=== PATIENT | female | born 2000 ===

== ENCOUNTER 2023-01-29 16:27 | Emergency (ER) | payer OTHER, SELFPAY ==
--- NOTE | ~2023-01-29 | XR_ITS ---
EXAMINATION: XR CHEST CLINICAL INFORMATION: Shortness of breath. Cough. COMPARISON: None available. TECHNIQUE: 2 views of the chest were obtained. FINDINGS: Cardiac silhouette is normal in size. Lungs are well aerated. There is no lobar consolidation. No pleural effusion or pneumothorax. No acute osseous abnormality. XR/XR chest 2V IMPRESSION: No acute pulmonary pathology.
[2023-01-29 16:29] VITALS: BP 106/66; PULSE 120; RESP 18; TEMP 37.4; O2SAT 100; BMI 20.1
--- NOTE | 2023-01-29 16:29 | ED_ITS ---
HPI - General Adult General Chief complaint: Upper Respiratory Symptoms Stated complaint: Chest pressure, SOB, chills, fever symptoms Time Seen by Provider: 01/29/23 18:55 Source: patient Mode of arrival: ambulatory Limitations: no limitations History of Present Illness HPI narrative: Patient is a 22 year old assigned female at with no reported medical history presenting to the emergency department today feeling generally unwell. Patient states that over the last 3 days she has had chills, congestion, headache, and a sore throat. Patient denies any dizziness, lightheadedness, abdominal pain, nausea, vomiting, fever, blurry vision, double vision, loss of vision, chest pain, difficulty breathing, shortness of breath, back pain, night sweats, pain with urination, increased urinary frequency, increased urinary urgency, blood in her urine or stool, syncope or a near syncopal episode, recent trauma or falls, bowel incontinence, bladder incontinence, bowel retention, bladder retention, or any other complaints at this time. Onset (ago): day(s) (3) Severity: mild Severity scale (1-10): 3 Relieving factors: none Exacerbating factors: none Associated symptoms: fever/chills and headaches Treatments prior to arrival: none Related Data Allergies Allergy/AdvReac Type Severity Reaction Status Date / Time No Known Allergies Allergy Verified 01/29/23 16:29 Review of Systems Constitutional: Constitutional: Reports no additional constitutional complaints, Reports chills, Denies fever(s), Reports headache(s) and Denies night sweats Eyes: Eyes: Reports no additional eye complaints, Denies blurry vision, Denies change in vision, Denies diplopia, Denies eye discharge, Denies loss of vision and Denies eye pain ENT: Denies dizziness, Reports headache(s), Reports nasal congestion and Reports sore throat Cardiovascular: Cardiovascular: Reports no additional cardiovascular complaints, Denies chest pain, Denies lightheadedness, Denies Loss of Consciousness and Denies dyspnea Respiratory: Respiratory: Reports no additional respiratory complaints and Denies dyspnea Gastrointestinal: Gastrointestinal: Reports no additional gastrointestinal complaints, Denies abdominal pain, Denies melena, Denies hematochezia, Denies change in bowel habits and Denies change in stool character Genitourinary: Genitourinary: Denies hematuria, Denies urinary frequency, Denies dysuria, Denies urinary incontinence, Denies urinary hesitancy and Denies urinary urgency Musculoskeletal: Musculoskeletal: Reports no additional musculoskeletal complaints, Denies numbness and Denies tingling Neurologic: Denies dizziness, Reports headache(s), Denies loss of vision, Denies numbness and Denies tingling Psychiatric: Psychiatric: Reports no additional psychiatric complaints Endocrine: Endocrine: Reports no additional endocrine complaints Hematologic/Lymphatic: Hematologic/Lymphatic: Reports no additional hematologic/lymphatic complaints Allergic/Immunologic: Allergic/Immunologic: Reports no additional allergic/immunologic complaints [facility] Past Medical History Attestation statement: The following information was validated with the patient. Source: old records reviewed and nursing notes reviewed Social History Social History Advance Directives: No Advance Directives Information Provided: No Physical Exam ED Vital Signs: Vital Signs - 24 hr 01/29/23 16:29 Temperature 99.4 F Pulse Rate 120 H Respiratory Rate 18 Blood Pressure 106/66 Pulse Oximetry 100 Oxygen Delivery Method Room Air BMI result Body Mass Index 20.1 Const General: cooperative, no acute distress, alert and awake Nutritional Appearance: well nourished Orientation/consciousness: patient oriented x3 Limitations: no limitations HENMT Head: Yes normal to inspection and Yes atraumatic Ears: hearing grossly normal bilaterally and external ears normal General nose exam: Normal external nose present, no nasal discharge noted and no epistaxis Face and sinus: Yes normal facial exam, No abrasion and No laceration Mouth: Normal oral and palatal mucosa present, no drooling and no muffled voice Eyes General: appearance normal, both eyes and all related structures Periorbital: periorbital findings normal Eyelids: Yes eyelids normal Conjunctivae: conjunctivae normal Pupils: Equal, round and reactive pupils present EOM: EOMs intact bilaterally Neck Neck: Yes normal visual inspection, Yes full ROM and Yes no lymphadenopathy Chest Chest palpation & inspection: normal inspection of the chest Resp Effort & Inspection: normal respiratory effort and able to speak in complete sentences GI Inspection: Yes normal to inspection Neuro General: patient oriented x3 and moves all extremities Cranial nerves: Yes Equal, round and reactive pupils present Cognition (Neuro): normal cognition Motor exam (neuro): 5/5 motor strength present throughout Sensory Exam: Normal double simultaneous stimulation for sensation Coordination: [id number] test normal Extrem General: Yes normal to inspection, Yes full ROM and Yes capillary refill normal Psych Appearance: grossly normal Mental Status: mental status grossly normal Affect: normal affect Attitude: cooperative Thought process: Normal thought process present Thought content: Normal thought content present Insight: Good insight present (Psych) Course Course Course Narrative: RME performed by Raya Mcguire PA-C. Patient is a 22 year old assigned female at presenting to the emergency department with feeling generally unwell for the last 3 days. Imaging and swabs ordered. Patient placed back in the waiting room pending room availability and results. Medical Decision Making Medical Decision Making [facility] Narrative: Patient is a 22 year old assigned female at with no reported medical history presenting to the emergency department today with chills, congestion, headache, and sore throat. Patient's physical exam was unremarkable. Patient's chest x-ray showed no acute process. Patient's EKG was unremarkable. Patient's COVID-19 test was positive. Patient's influenza, RSV, and strep swabs were negative. I explained my physical exam findings as well as all test results to the patient. I answered all questions asked by the patient. I stressed the importance of the patient taking her medication as prescribed. I stressed the importance of the patient following up with her primary care provider. I stressed the importance of the patient returning to the emergency department immediately if her symptoms were to worsen or if she were to develop any dizziness, shortness of breath, difficulty breathing, chest pain, blurry vision, loss of vision, nausea, vomiting, abdominal pain, fever, chills, back pain, or any other complaints. Patient verbalized agreement and understanding with this treatment plan and discharge. Differential Diagnosis Differential Diagnoses: The differential diagnosis associated with the presentation includes COVID-19 RSV Influenza Admission/Observation Consideration of admission/observation: Escalation of care including admission/observation considered Patient would have been admitted to the hospital had her work up had any findings where hospital admission was appropriate and her clinical presentation warranted hospital admission. Lab Data [facility] Lab Attestation statement: I reviewed the patient's lab results. My interpretation of these studies and their corresponding values is that they are grossly normal. Labs: Lab Results 01/29/23 Range/Units 17:05 Influenza Type A (PCR) NEGATIVE (Negative) Influenza Type B (PCR) NEGATIVE (Negative) RSV RNA Qual (PCR) NEGATIVE (Negative) SARS-CoV-2 RNA (RT-PCR) POSITIVE A (Negative) S. pyogenes GrpA PONCHO Negative (Negative) Independent Interpretation I performed an independent interpretation of an: EKG and Plain X-Ray Interpretation: My interpretation is in agreement with the radiologist's impression of this imaging study. EXAMINATION: XR CHEST CLINICAL INFORMATION: Shortness of breath. Cough. COMPARISON: None available. TECHNIQUE: 2 views of the chest were obtained. FINDINGS: Cardiac silhouette is normal in size. Lungs are well aerated. There is no lobar consolidation. No pleural effusion or pneumothorax. No acute osseous abnormality. XR/XR chest 2V IMPRESSION: No acute pulmonary pathology. Dictated By: Nabor Leon MD Signed By: Electronically signed by Nabor Leon MD 01/29/23 1702 Vent. Rate: 117 BPM Atrial Rate: 117 BPM P-R Int: 134 ms QRS Dur: 084 ms QT Int: 294 ms P-R-T Axes: 072 071 051 degrees QTc Int: 410 ms Sinus tachycardia Otherwise normal ECG No previous ECGs available DD/ [id number] Radiology Impression Discussion of test interpretation with radiology: I have reviewed the radiologist's reading. Discharge Plan Discharge Clinical Impression: COVID-19 Patient Disposition: Home, Self-Care Instructions: COVID-19 (Coronavirus Disease 2019) (ED) Additional Instructions: Follow up with your primary care provider. Return to the emergency department immediately if your symptoms worsen or if you develop any dizziness, shortness of breath, difficulty breathing, chest pain, blurry vision, loss of vision, nausea, vomiting, abdominal pain, fever, chills, back pain, or any other co mplaints. [place] [facility] [facility] [place]] (Call to establish and follow up with a primary care provider. If you already have a primary care provider, please f ollow up with them.) [facility]Provider Group] (Call to establish and follow up with a primary care provider. If you already have a primary care provider, please follow up with them.) [facility]Provider Group] (Call to establish and follow up with a primary care provider. If you already have a primary care provider, please follow up with them.) Stand Alone Forms: Work/School Release Print Language: Japanese
--- NOTE | 2023-01-29 16:30 | ECG_ITS ---
Test Reason : chest pain Blood Pressure : / mmHG Vent. Rate : 117 BPM Atrial Rate : 117 BPM P-R Int : 134 ms QRS Dur : 084 ms QT Int : 294 ms P-R-T Axes : 072 071 051 degrees QTc Int : 410 ms Sinus tachycardia Intra-ventricular conduction delay Otherwise normal ECG No previous ECGs available Referred By: Raya Mcguire Electronically Signed By:KELLI TEAGUE MD
[2023-01-29 17:29] LABS: IDNOW Serial# 58CA691E; Strep A Nucleic Acid Negative (Negative)
[2023-01-29 17:51] LABS: Influenza A PCR NEGATIVE (Negative); Influenza B PCR NEGATIVE (Negative); Resp Syncy Virus RNA Qual PCR NEGATIVE (Negative); SARS COV2 PCR INHOUSE POSITIVE (Negative)
== END 2023-01-29 19:48 | disposition home or self-care (01) ==
PROVIDERS: Physician Assistant Medical; Emergency Provider Emergency Medicine Emergency Medical Services; PCP Internal Medicine
DX: U07.1 COVID-19 (principal); J02.9 Acute pharyngitis, unspecified; R51.9 Headache, unspecified; R06.02 Shortness of breath; R05.9 Cough, unspecified; R00.0 Tachycardia, unspecified
CPT/HCPCS: 0241U; 71046; 87651; 93005; 99283

== ENCOUNTER 2023-12-02 19:09 | Emergency (ER) | payer OTHER, SELFPAY ==
--- NOTE | ~2023-12-02 | CT_ITS ---
EXAMINATION: CT ABDOMEN AND PELVIS WITHOUT CONTRAST CLINICAL INFORMATION: Suprapubic discomfort COMPARISON: None available. TECHNIQUE: Multidetector volumetric imaging was performed from the superior aspect of the liver through the pubic symphysis. Sagittal and coronal reformatted images were obtained on the technologist's workstation. This CT examination was performed using dose optimization techniques as appropriate, variously including the following: *Automated exposure control *Adjustment of mA and/or kV according to patient size (this includes techniques or standardized protocols for targeted exams where dose is matched to indication/reason for exam; i.e. extremities or head) *Use of iterative reconstruction technique DLP: 264 mGy-cm FINDINGS: The study is limited by lack of oral, IV contrast as well as retroperitoneal fat. LUNG BASES: The visualized lung bases are unremarkable. LIVER, GALLBLADDER, AND BILIARY TREE: The liver is normal in size, shape, and attenuation. No focal hepatic lesion or biliary ductal dilatation is present. The gallbladder is unremarkable with no evidence of radiopaque gallstones, gallbladder wall thickening, or obvious pericholecystic inflammatory changes. PANCREAS: Unremarkable. SPLEEN: Unremarkable. ADRENAL GLANDS: Unremarkable. KIDNEYS AND URETERS: The kidneys are normal in size, shape, and attenuation. No hydronephrosis, hydroureter, or calculi seen. No perinephric stranding. BLADDER: Bladder is essentially completely empty with a symmetrically thickened wall GASTROINTESTINAL TRACT: The small and large bowel are unremarkable. The appendix is unremarkable. ABDOMINAL WALL: No significant hernia is appreciated. LYMPH NODES: Normal. VASCULAR: Unremarkable. PELVIC VISCERA: The uterus and adnexa are unremarkable. No significant free fluid is seen. OSSEOUS STRUCTURES: Unremarkable. CT/CT abdomen pelvis wo IV con IMPRESSION: A cause for the patient's pelvic discomfort has not been found. Pelvic ultrasound may be useful for further evaluation. Fleischner guidelines were followed. Electronically signed by: Cyril Santos MD 12/02/2023 11:33 PM EDT
--- NOTE | 2023-12-02 19:16 | ED_ITS ---
HPI - General Adult General Chief complaint: Urogenital-Female Stated complaint: possible UTI, wants bladder scan Time Seen by Provider: 12/02/23 21:48 Source: patient Mode of arrival: ambulatory Limitations: no limitations History of Present Illness ED Provider: Kyree DUNNE HPI narrative: This is a 22 yo f hx of anxiety, depression, dysmenorrhea, hx of chlamydia infection 209 presenting w/ lower abd discomfort x 2 months primarily located over the suprapubic region she also reports urinary frequency, urgency, and diffuse lower back pain. Patient [place] vaginal sw[place] and [place] [facility] [place] states overall her workup was negative. At one point she had vaginal discharge she thought was yeast but per patient [facility] [place] present. LMP 10/23/2023. Home teste today negative. Denies concerns for STDs but does have a new sexual partner. Related Data Previous Rx's ?Medication ?Instructions ?Recorded phenazopyridine 100 mg tablet 200 mg (2 x 100 mg) PO TID 2 days 12/02/23 (Pyridium) #6 tabs Allergies Allergy/AdvReac Type Severity Reaction Status Date / Time No Known Allergies Allergy Verified 12/02/23 19:20 Review of Systems 2 Review of Systems: Yes all other systems are reviewed and are negative [facility] Past Medical History Attestation statement: The following information was validated with the patient. Source: old records reviewed and nursing notes reviewed Social History Social History Advance Directives: No Advance Directives Information Provided: No Do you have a plan to hurt others: No Plan Physical Exam ED Vital Signs: Vital Signs - 24 hr 12/02/23 19:18 Temperature 97.6 F Pulse Rate 89 Respiratory Rate 18 Blood Pressure 113/78 Pulse Oximetry 100 Oxygen Delivery Method Room Air BMI result Body Mass Index 18.7 vss Appearance: Alert.? Oriented X3.? No acute distress.? Head: Normocephalic, atraumatic, no step-offs or deformities Eyes: Pupils equal, round and reactive to light.? CVS: Normal heart rate and rhythm.? Pulses normal.? Respiratory: No respiratory distress.? Breath sounds normal.? Abdomen: Soft and nontender.? Skin: Skin warm and dry.? Normal skin color.? Normal skin turgor.? Extremities: No lower extremity edema.? No calf ttp. 5/5 strength to bilateral upper and lower extremities Back: No midline tenderness, no C-spine tenderness, full range of motion, no CVA tenderness bilaterally Neuro: Oriented X 3.? No motor deficit.? No sensory deficit. CN 2-12 intact Course Course Course Narrative: This is an RME performed by Shahram Vyas, SERICULTURE TEACHER: Additional HPI, ROS, PE not included below will be deferred to primary provider. Patient is a 22-year-old female who presents emergency department for evaluation she Reports for a couple of months she has been experiencing genitourinary symptoms including Urinary frequency and urgency with suprapubic pain, has pain diffusely across the lower back. Reports that she was evaluated at [facility] 2 weeks ago she had vaginal swabs and urine testing done at that time that she did not have infection at that time expresses some concern for yeast like discharge that was reportedly not a yeast infection. Uncertain date of last menstrual period, took home test today which was negative. No new sexual partners within the past month, denies concern for sexually transmitted infections. Plan: Urinalysis, hCG, CT NG, BV panel, labs Reevaluation(s) Reevaluation #1: CBC unremarkable. Chemistry no acute findings needing intervention. Beta hCG negative. UA negative. No Trichomonas or yeast seen. CT abdomen and pelvis with cause of patient's pelvic discomfort not identified. History and physical exam concerning for cystitis rather than UTI. Will treat with Pyridium. Educated patient on diagnosis and treatment plan, answered all question, patient verbalizes understanding. At this time patient will be discharged home, advised to return with new or worsening symptoms. Educated on worrisome signs and symptoms and when to return. At this time I feel comfortable discharge home. Time: 23:50 Medical Decision Making Medical Decision Making [facility] [place] Narrative: 2153 22 year old female presents w/ suprapubic discomfort X 2 months Per patient was seen at [facility] with negative workup. PE mild suprapubic discomfort Hx and pe concerning for UTI vs Cystitis. Unlikely acute abdomen, torsion, ectopic,pylo, kidney stones. [place] sánchez NG/CT, trich, PID Plan- labs, imaging, urine Differential Diagnosis Differential Diagnoses: The differential diagnosis associated with the presentation includes Hx and pe concerning for UTI vs Cystitis. Unlikely acute abdomen, torsion, ectopic,pylo, kidney stones. [place] sánchez NG/CT, trich, PID Admission/Observation Consideration of admission/observation: Escalation of care including admission/observation considered unlikely Lab Data [facility] Lab Attestation statement: I reviewed the patient's lab results. 12/02/23 19:38 12/02/23 19:38 Labs: Lab Results 12/02/23 12/02/23 Range/Units 19:38 20:34 WBC 7.8 (4.8-10.8) X10*3/uL RBC 4.11 L (4.20-5.50) X10*6/uL Hgb 12.4 (12.0-16.0) g/dl Hct 36.4 L (37.0-47.0) % MCV 88.6 (80.0-98.0) fL MCH 30.2 (27.0-33.0) pg MCHC 34.1 (31.0-35.0) g/dl RDW 12.7 (11.0-16.0) % Plt Count 196 (160-400) X10*3/uL MPV 12.2 (9.4-12.3) fL Immature Gran % (Auto) 0.1 (0.0-0.4) % Neut % (Auto) 64.6 (45-73) % Lymph % (Auto) 27.1 (20-40) % Candler % (Auto) 6.9 (2-11) % Eos % (Auto) 0.8 (0-4) % Baso % (Auto) 0.5 (0-2) % Lymph # (Auto) 2.1 (1.2-4.9) X10*3/uL Candler # (Auto) 0.5 (0.1-1.2) X10*3/uL Eos # (Auto) 0.1 (0.0-0.4) X10*3/uL Baso # (Auto) 0.0 (0.0-0.2) X10*3/uL Abs Immat Gran (auto) 0.01 (0.00-0.03) X10*3/uL Absolute Neuts (auto) 5.0 (2.0-8.3) x10*3/uL Absolute Nucleated RBC 0.000 (0.0-0.012) X10*3/uL Nucleated RBC % (auto) 0.0 (0.0-0.2) /100WBC Sodium 138 (135-145) mmol/L Potassium 4.1 (3.3-5.1) mmol/L Chloride 110 H (96-108) mmol/L Carbon Dioxide 22 (22-29) mmol/L Anion Gap 10 L (12-20) BUN 14 (9-16) mg/dL Creatinine 0.68 (0.5-1.4) mg/dL Estim Creat Clear Calc 94.8 Estimated GFR > 60 Random Glucose 99 (60-115) mg/dL Calcium 9.6 (8.4-10.2) mg/dL Total Bilirubin 0.4 (0.0-1.0) mg/dL AST 16 (5-31) U/L ALT 8 (0-31) U/L Alkaline Phosphatase 59 (39-117) U/L Total Protein 7.4 (6.5-8.0) g/dL Albumin 4.6 (3.5-5.0) g/dL Beta HCG, Quant < 2 mIU/mL Urine Color Yellow Urine Appearance Clear Urine pH 6.5 (5.0-9.0) Ur Specific Woodrow 1.010 (1.005-1.025) Urine Protein Negative (Neg-Trace) mg/dL Urine Glucose (UA) Negative (Negative) mg/dL Urine Ketones Negative (Negative) mg/dL Urine Blood Negative (Negative) Urine Nitrite Negative (Negative) Ur Leukocyte Esterase Negative (Negative) Independent Interpretation I performed an independent interpretation of an: CT Scan Radiology Impression Discussion of test interpretation with radiology: I have reviewed the radiologist's reading. Discharge Plan Discharge Clinical Impression: Suprapubic fullness, Cystitis Patient Disposition: Home, Self-Care Instructions: Urinary Tract Infection in Women (ED), Acute Abdominal Pain (ED) Additional Instructions: Take your medications as prescribed. If you were prescribed antibiotics today, it is important that you take your medication to their entirety, do not skip any doses, do not finish them early. Follow-up with your primary care provider this week. Return to the emergency department with new or worsening symptoms. Such as fevers, chills, chest pain, shortness of breath, nausea, vomiting, dizziness, headache, vision changes, lethargy In case of emergency call 911 CT/CT abdomen pelvis wo IV con IMPRESSION: A cause for the patient's pelvic discomfort has not been found. Pelvic ultrasound may be useful for further evaluation. Fleischner guidelines were followed. Prescriptions: New phenazopyridine [Pyridium] 100 mg tablet 200 mg PO TID 2 Days Qty: 6 0RF Referrals: Brisa Carrion, PT [Primary Care Provider] - 2 days Stand Alone Forms: Work/School Release Print Language: Chilean
[2023-12-02 19:18] VITALS: BP 113/78; PULSE 89; RESP 18; TEMP 36.4; O2SAT 100; BMI 18.7
[2023-12-02 19:42] LABS: MANUAL DIFF FLAG NO
[2023-12-02 19:47] LABS: Basophils Percent Auto 0.5 % (0-2); Eosinophils Absolute Auto 0.1 X10*3/uL (0.0-0.4); Eosinophils Percent Auto 0.8 % (0-4); Hematocrit 36.4 % (37.0-47.0); Hemoglobin 12.4 g/dl (12.0-16.0); Imm Gran Abs Auto 0.01 X10*3/uL (0.00-0.03); Imm Gran Pct Auto 0.1 % (0.0-0.4); Lymphocytes Absolute Auto 2.1 X10*3/uL (1.2-4.9); Lymphocytes Percent Auto 27.1 % (20-40); Mean Corpuscular HGB Conc 34.1 g/dl (31.0-35.0); Mean Corpuscular Hemoglobin 30.2 pg (27.0-33.0); Mean Corpuscular Volume 88.6 fL (80.0-98.0); Mean Platelet Volume 12.2 fL (9.4-12.3); Monocytes Absolute Auto 0.5 X10*3/uL (0.1-1.2); Monocytes Percent Auto 6.9 % (2-11); Neutrophils Percent Auto 64.6 % (45-73); Platelet Count 196 X10*3/uL (160-400); Red Blood Count 4.11 X10*6/uL (4.20-5.50); Red Cell Distribution Width 12.7 % (11.0-16.0); White Blood Count 7.8 X10*3/uL (4.8-10.8)
[2023-12-02 19:58] LABS: Alanine Aminotransferase 8 U/L (0-31); Albumin Level 4.6 g/dL (3.5-5.0); Alkaline Phosphatase 59 U/L (39-117); Anion Gap 10 (12-20); Aspartate Amino Transferase 16 U/L (5-31); Bilirubin Total 0.4 mg/dL (0.0-1.0); Blood Urea Nitrogen 14 mg/dL (9-16); Calcium 9.6 mg/dL (8.4-10.2); Carbon Dioxide 22 mmol/L (22-29); Chloride 110 mmol/L (96-108); Creatinine Clr Calc Pharmacy 94.8; Estimated Glomerular Filt Rate > 60; Glucose Random 99 mg/dL (60-115); Potassium 4.1 mmol/L (3.3-5.1); Sodium 138 mmol/L (135-145); Total Protein 7.4 g/dL (6.5-8.0)
[2023-12-02 20:54] LABS: Appearance Urine Clear; Color Urine Yellow; Glucose Urine UA Negative (Negative); Leukocyte Esterase Urine Negative (Negative); Nitrite Urine Negative (Negative); PH 6.5 (5.0-9.0); Urine Blood Negative (Negative); Urine Ketones Negative (Negative); Urine Protein Negative (Neg-Trace)
[2023-12-02 22:21] LABS: HCG Quantitative < 2 mIU/mL
[2023-12-03 00:21] VITALS: BP 110/67; PULSE 72; RESP 18; TEMP 37; O2SAT 98
[2023-12-03 00:22] VITALS: BP 110/67; PULSE 72; RESP 18; TEMP 37; O2SAT 98
[2023-12-03 01:19] LABS: CT PCR NOT DETECTED (Not Detect.); NG PCR NOT DETECTED (Not Detect.)
[2023-12-03 10:07] LABS: Bacterial Vaginosis PCR NEGATIVE (Negative); Candida Group PCR NOT DETECTED (Not Detect); Candida glab krusei PCR NOT DETECTED (Not Detect); Trichomonas vaginalis PCR NOT DETECTED (Not Detect)
== END 2023-12-02 23:59 | disposition home or self-care (01) ==
PROVIDERS: Nurse Practitioner Family; Physician Assistant; Emergency Provider Emergency Medicine Emergency Medical Services
DX: R10.30 Lower abdominal pain, unspecified (principal); N30.80 Other cystitis without hematuria; R35.0 Frequency of micturition; M54.50 Low back pain, unspecified; Z20.2 Contact with and (suspected) exposure to infections with a predominantly sexual mode of transmission; Z79.899 Other long term (current) drug therapy
CPT/HCPCS: 0352U; 36415; 74176; 80053; 81003; 84702; 85025; 87491; 87591; 99284

== ENCOUNTER 2024-04-14 12:43 | Emergency (ER) | payer OTHER, SELFPAY ==
--- OUTSIDE RECORDS SUMMARY | 2024-04-14 18:15 | XMS_ITS | Clinical Summary ---
Author Organization [facility] ity Address [id number] [place] [id number] Care Team Providers Care Four H Agent Name Role Phone Unavailable Primary Care Provider Unavailabl e Surgical History Surgery Date Site/Laterality Comments OTHER SURGICAL HISTORY PROCEDURE: DENIES PREVIOUS SURGERY Medical History Medical History Date Comments Lactose intolerance 04/30 DX:Lactose i ntolerance; COMMENT: lactaid pills with milk; ok with cheese and yogurt Strep pharyngitis DX:Strep phary ngitis; COMMENT: 05/20, 01/24, 05/29 Family History Medical History Relation Name Comments Other: anger Father Seizures Father MGM Depression Mother Relation Name Status Comments Father Mother Social History Tobacco Use Types Packs/Day Years Used Date Smoking Tobacco: Never Smokeless Tobacco: Never Alcohol Use Standard Drinks/Week Comments Not Asked 0 (1 standard drink = 0.6 oz pur e alcohol) Sex and Gender Information Value Date Recorded Sex Assigned at Not on file Gender Identity Not on file Sexual Orientation Not on file Obstetrics History Plan of Treatment Health Maintenance Due Date Last Done Comments Gonorrhea/Chlamydia Screening 2000 Cervical Cancer Screening: Pap Smear 2021 DTaP,Tdap,and Td Vaccines (7 - Td or Tdap) 07/31/2022 07/31/2012, 11/28/2006, 05/09/2002, Additional history exists Depression Screening 04/17/2023 HIV Screening 04/17/2023 Hepatitis C Screening 04/17/2023 Social Influencers of Health Screening 04/17/2023 COVID-19 Vaccine ( season) 2023 Influenza Vaccine (#1) 2023 5, 01/03/2014, 03/28/2012, Additional history exists Hepatitis B Vaccines Completed 08/26/2001, 01/29/2001, 2000 HIB Vaccines Completed 05/09/2002, 05/18, 04/12/2001, Additional history exists Pneumococcal Vaccine: Pediatrics (0 to 5 Years) and At-Risk Patients (6 to 64 Years) Completed 08/29/2002, 06/06/2001, 04/12/2001, Additional history exists IPV Vaccines Completed 11/28/2006, 08/17, 05/09/2002, Additional history exists MMR Vaccines Completed 11/28/2006, 05/30/2002 Varicella Vaccines Completed 11/28/2006, 05/30/2002 Meningococcal ACWY Vaccine Aged Out 07/31/2012 N o longer eligible based on patient's age to complete this topic HPV Vaccines Completed 08/27/2015, 09/16/2013 Hepatitis A Vaccines Aged Out No long er eligible based on patient's age to complete this topic RSV Immunization Patients Under 20 months Aged Out No longer eligible based on patient's age to complete this topic
== END 2024-04-14 13:51 | disposition left against medical advice (07) ==
LOC: HO.ED 13:30
PROVIDERS: Emergency Provider Emergency Medicine
DX: R50.9 Fever, unspecified (principal); R11.2 Nausea with vomiting, unspecified; R19.7 Diarrhea, unspecified; Z53.21 Procedure and treatment not carried out due to patient leaving prior to being seen by health care provider

== ENCOUNTER 2024-07-08 11:09 | Emergency (ER) | payer OTHER, SELFPAY ==
--- NOTE | ~2024-07-08 | XR_ITS ---
EXAMINATION: XR THORACIC SPINE CLINICAL INFORMATION: back pain. degnerative disc disease COMPARISON: None available. TECHNIQUE: 3 views of the thoracic spine were obtained. FINDINGS: No acute cortical disruption or malalignment. No lytic or blastic lesions. XR/XR thoracic spine 3V IMPRESSION: No acute fracture or listhesis. Normal x-ray. Electronically signed by: Damian Godinez MD 07/08/2024 11:39 AM EDT
--- NOTE | ~2024-07-08 | XR_ITS ---
EXAMINATION: XR CERVICAL SPINE CLINICAL INFORMATION: neck pain. arthritits COMPARISON: None available. TECHNIQUE: 3 views of the cervical spine were obtained. FINDINGS: Craniocervical junction is intact. No acute cortical disruption. 1 mm retrolisthesis at C3-4. No lytic or blastic lesions. Upper airway is patent. XR/XR cervical spine 3V IMPRESSION: Grade 1 retrolisthesis C3-4. Electronically signed by: Damian Godinez MD 07/08/2024 11:39 AM EDT
[2024-07-08 11:18] VITALS: BP 115/73; PULSE 81; RESP 18; TEMP 36.6; O2SAT 100; BMI 17.6
--- NOTE | 2024-07-08 11:23 | ED.GENADULT ---
HPI - General Adult General Chief complaint: Neck Pain/Injury Stated complaint: Nerve pain in neck down to arms/fingers Time Seen by Provider: 07/08/24 11:46 Source: patient Mode of arrival: ambulatory Limitations: no limitations History of Present Illness ED Provider: Jose Andrade HPI narrative: 23-year-old female presents to ED for neck and upper back pain for the past couple of weeks radiating down both arms without any trauma. Patient denies any slurred speech, facial droop, loss of vision, paralysis of extremities. Patient denies any headache, dizziness, nausea, vomiting, neck stiffness, photophobia, rash, fever, or chills. Related Data Previous Rx's ?Medication ?Instructions ?Recorded phenazopyridine 100 mg tablet 200 mg (2 x 100 mg) PO TID 2 days 12/02/23 (Pyridium) #6 tabs Allergies Allergy/AdvReac Type Severity Reaction Status Date / Time No Known Allergies Allergy Verified 07/08/24 11:20 Review of Systems Review of Systems: neck and upper back pain Yes all other systems are reviewed and are negative [facility] Social History Social History Advance Directives: Yes Advance Directives Information Provided: Yes Advance Directives on File: No Physical Exam ED Vital Signs: Vital Signs - 24 hr 07/08/24 11:18 07/08/24 13:08 Temperature 97.8 F 97.8 F Pulse Rate 81 81 Respiratory Rate 18 18 Blood Pressure 115/73 115/73 Pulse Oximetry 100 100 Oxygen Delivery Method Room Air Room Air BMI result Body Mass Index 17.6 Const General: cooperative, healthy appearing, comfortable, no acute distress, well developed, alert, awake and Physically active Orientation/consciousness: patient oriented x3 HENMT Head: Yes normal to inspection, Yes No palpable skull fracture present, Yes normocephalic and Yes atraumatic Ears: hearing grossly normal bilaterally, external ears normal, TM's normal bilaterally, TM normal on the right, TM normal on the left, EAC's normal, mastoids normal and no periauricular adenopathy Eyes General: appearance normal, both eyes and all related structures Neck Neck: Yes normal visual inspection, Yes full ROM, Yes no lymphadenopathy, Yes no meningeal signs, Yes trachea midline, Yes supple, No anterior neck swelling and Yes tender (mild posterior cervical tenderness.) Chest Chest palpation & inspection: normal inspection of the chest and normal palpation of entire chest wall Resp Effort & Inspection: normal respiratory effort and able to speak in complete sentences Cardio Jugular venous distension: no JVD Heart sounds: S1 normal heart sound present and S2 normal heart sound present GI Inspection: Yes normal to inspection Palpation (GI): Soft to palpation, nontender, no guarding and not rigid General: Yes no CVA tenderness Back/Spine/Pelvis Back: no CVA tenderness and back tenderness (thoracic) Skin General skin exam: no rashes or lesions noted, elasticity normal and turgor normal Neuro General: patient oriented x3, gait normal, tone normal, moves all extremities, Normal light touch and pain sensation, no meningeal signs, no focal motor deficits, CN's II-XI intact bilaterally and normal sensation to monofilament Extrem General: Yes normal to inspection, Yes full ROM and Yes capillary refill normal Psych Appearance: grossly normal, well kempt and not disheveled Course Course Course Narrative: RME: 22 year female presents to ED upper back mild neck pain radiating down both shoulders without any trauma. Patient states back pain worse on movement. Patient denies any IV drug use, paralysis of extremities, or history of any immunocompromise diseases. Patient denies any slurred speech, facial droop, paralysis of extremities, loss vision. Patient is sent for x-ray of neck and back. Medical Decision Making Medical Decision Making MDM Narrative: 23 yold female presents to the ED for neck and upper back pain radiating down both arms for couple of weeks without. patient denies any upper extremity or lower extremity weakness. patient denies any slured speech, headache, dizziness, nuasea, vomtiting, fever, chills, rash, or, photphobia. Thoraric xray is normal. Cervical xray Grade 1 retrolisthesis C3-4. NIH Score 0. Not suspecting carotid dissection, stroke, vertebral dissection, brain bleed, osteomyelitis, cauda equinus syndrome, epidural abscess, cervical spine fracture/subluxation, UTI, pyelonephritis, or any other concerning symptoms. Differential Diagnosis Differential Diagnoses: The differential diagnosis associated with the presentation includes (Arthritis, fracture,) Admission/Observation Consideration of admission/observation: Escalation of care including admission/observation considered Independent Interpretation I performed an independent interpretation of an: Plain X-Ray Radiology Impression Discussion of test interpretation with radiology: I have reviewed the radiologist's reading. Independent Historian Clinical information obtained from an independent historian. History obtained from or confirmed by: Other (patient) Prescription Management I considered prescription management with: Pain Medication Discharge Plan Discharge Clinical Impression: Retrolisthesis of vertebrae Patient Disposition: Home, Self-Care Instructions: Spondylolisthesis (ED) Additional Instructions: Recommend follow-up with your primary care provider. You may need referral to physical therapy and if no improvement you may need MRI. Return to the ED immediately for any weakness paralysis of upper/lower extremities, severe neck pain, fever, chills, neck stiffness, light bothering eyes, headache, dizziness, nausea, vomiting, rash, slurred speech, facial droop, paralysis of extremities, loss of vision, or any other concerning symptoms. Continue taking muscle relaxer and Motrin you were prescribed by primary care provider. EXAMINATION: XR CERVICAL SPINE CLINICAL INFORMATION: neck pain. arthritits COMPARISON: None available. TECHNIQUE: 3 views of the cervical spine were obtained. FINDINGS: Craniocervical junction is intact. No acute cortical disruption. 1 mm retrolisthesis at C3-4. No lytic or blastic lesions. Upper airway is patent. XR/XR cervical spine 3V IMPRESSION: Grade 1 retrolisthesis C3-4. Electronically signed by: Damian Godinez MD 07/08/2024 11:39 AM EDT RP EXAMINATION: XR THORACIC SPINE CLINICAL INFORMATION: back pain. degnerative disc disease COMPARISON: None available. TECHNIQUE: 3 views of the thoracic spine were obtained. FINDINGS: No acute cortical disruption or malalignment. No lytic or blastic lesions. XR/XR thoracic spine 3V IMPRESSION: No acute fracture or listhesis. Normal x-ray. Electronically signed by: Damian Godinez MD 07/08/2024 11:39 AM EDT Prescriptions: No Action phenazopyridine [Pyridium] 100 mg tablet 200 mg PO TID 2 Days Qty: 6 0RF Stand Alone Forms: Work/School Release Interventions: ED Discharge Assessment Last Done: 07/08/24 13:08 Discharge Date/Time: 07/08/24 13:08 Print Language: Cameroonian
[2024-07-08 13:08] VITALS: BP 115/73; PULSE 81; RESP 18; TEMP 36.6; O2SAT 100
--- OUTSIDE RECORDS SUMMARY | 2024-07-08 15:24 | XMS_ITS | Clinical Summary ---
Author Organization [facility] Address [id number] [place] [id number] Care Team Providers Care Commercial Baker Helper Name Role Phone Unavailable Primary Care Provider [...] drink = 0.6 oz pur e alcohol) Comments Unknown Sex and Gender Information Value Date Recorded Sex Assigned at Not on file Legal Sex Female 3:10 PM EST Gender Identity Not on file Sexual Orientation Not on file Obstetrics History Plan of Treatment Health Maintenance Due Date Last Done Comments Gonorrhea/Chlamydia Screening 2000 Meningococcal B Vaccine (1 of 2 - Standard) 2016 Cervical Cancer Screening: Pap Smear 2021 DTaP,Tdap,and Td Vaccines (7 - Td or Tdap) 07/31/2022 07/31/2012, 11/28/2006, 05/09/2002, Additional history exists Depression Screening 04/17/2023 HIV Screening 04/17/2023 Hepatitis C Screening 04/17/2023 Social Influencers of Health Screening 04/17/2023 COVID-19 Vaccine ( season) 2023 Influenza Vaccine (Season Ended) 2024 11/30/2014, 01/03/2014, 03/28/2012, Additional history exists Hepatitis B [...]
--- OUTSIDE RECORDS SUMMARY | 2024-07-08 15:24 | XMS_ITS | Continuity of Care Document ---
Author Organization [facility] Address [address] [place] [address]- Care Team Providers Care Human Capital Manager Name Role Phone Trice Carrion MD Primary Care Physician Encounter [facility] Date(s): 06/06/24 - 07/06/24 [facility] [address] [place] [address]- Attending Physician: AdmMikael crespo Admitting Physician: Admtr, Ar8 Referring Physician: Admtr, Ar8 Encounter Type: Triage Allergies, Adverse Reactions, Alerts No Known Allergies Immunizations Given and Recorded Vaccine Date Status Refusal Reason influenza virus vaccine, inactivated 1 04/16/23 Gi jessi influenza virus vaccine, inactivated 01/25/18 Give n influenza virus vaccine, inactivated 2 01/26/17 Gi jessi influenza virus vaccine, inactivated 11/30/14 Give n influenza virus vaccine, inactivated 01/03/14 Derrick rded influenza virus vaccine, inactivated 03/28/12 Derrick rded influenza virus vaccine, inactivated 12/12/10 Derrick rded influenza virus vaccine, inactivated 01/18/09 Derrick rded [id number] bivalent booster vax 3 02/27/23 Recorded SARS-CoV-2(COVID-19)mRNA-LNP vac([id number]) 02/27/23 Recorded tetanus/diphtheria/pertussis, acel(Tdap) 12/17/20 Recorded tetanus/diphtheria/pertussis, acel(Tdap) 07/31/12 Given Human Papillomavirus Vaccine 01/26/17 Given Human Papillomavirus Vaccine 08/27/15 Recorded Human Papillomavirus Vaccine 7/1/14 Given Meningococcal Conjugate Vaccine 01/26/17 Given Meningococcal Conjugate Vaccine 07/31/12 Given Measles/Mumps/Rubella Virus Vaccine 05/30/12 Given Measles/Mumps/Rubella Virus Vaccine 11/28/06 Given Measles/Mumps/Rubella Virus Vaccine 05/30/02 Recor ded Poliovirus Vaccine, Inactivated 11/28/06 Given Poliovirus Vaccine, Inactivated 08/29/02 Given Poliovirus Vaccine, Inactivated 08/26/01 Given Poliovirus Vaccine, Inactivated 06/06/01 Given Varicella Virus Vaccine 11/28/06 Given Varicella Virus Vaccine 05/30/02 Given diphtheria/tetanus/pertussis, acel(DTaP) 11/28/06 Given diphtheria/tetanus/pertussis, acel(DTaP) 05/09/02 Given diphtheria/tetanus/pertussis, acel(DTaP) 06/06/01 Given diphtheria/tetanus/pertussis, acel(DTaP) 04/12/01 Given diphtheria/tetanus/pertussis, acel(DTaP) 02/26/01 Given pneumococcal 7-valent vaccine 08/29/02 Given pneumococcal 7-valent vaccine 06/06/01 Given pneumococcal 7-valent vaccine 04/12/01 Given pneumococcal 7-valent vaccine 02/26/01 Given Haemophilus B conjugate (HbOC) vaccine 05/09/02 Gi jessi Haemophilus B conjugate (HbOC) vaccine 06/06/01 Gi jessi Haemophilus B conjugate (HbOC) vaccine 04/12/01 Gi jessi Haemophilus B conjugate (HbOC) vaccine 02/26/01 Gi jessi hepatitis B pediatric vaccine 08/26/01 Given hepatitis B pediatric vaccine 01/29/01 Given hepatitis B pediatric vaccine 00 Given 1Result Comment: [facility] [id number] 2Result Comment: [01/26/2017] [id number] 3Result Comment: Done at [facility] on [address] Medications fluconazole 150 mg oral tablet 1 tablet = 150 mg, By Mouth, Once, # 1 tablet, 2 Refills, Soft Stop, 03/25/24 2:57:00 AM EST, Tablet,[facility]/pharmacy #[id number], Partial fill upon patient request if the prescription is for a schedule II opioid drug., 158, cm, 03/25/24 2:29:00 EST, Height, 44.5, kg, 03/25/24 2:29:00 EST, Dry Weight Start Date: 03/25/24 Status: Ordered Quantity: 1.0 Unit: tablet Repeat number: 3 fluticasone 50 mcg/inh nasal spray 1 sprays = 50 mcg, Nares, Both, 2 times a day, # 16 Gm, 1 Refills, Maintenance, 04/18/24 1:22:00 PM EST, [facility]/pharmacy #[id number], 1 sprays Nares, Both 2 times a day,x30 days, 160, cm, 04/18/24 12:49:00 EST, Height, 43, kg, 04/14/24 14:03:00 EST, Dry Weight Start Date: 04/18/24 Stop Date: 06/17/24 Status: Ordered Quantity: 16.0 Unit: g Repeat number: 2 hydrOXYzine hydrochloride 25 mg oral tablet 2 tablet, By Mouth, Daily at bedtime, PRN NEEDED FOR ANXIETY/SLEEP, # 60 tablet, 0 Refills, Maintenance, 04/01/24 2:06:00 PM EST, [facility] STORE [id number], 158, cm, 03/25/24 2:29:00 EST, Height, 44.5, kg, 03/25/24 2:29:00 EST, Dry Weight Start Date: 04/01/24 Status: Ordered Quantity: 60.0 Unit: tablet Repeat number: 04/07 oral tablet 0 Refills, Maintenance, 04/18/24 1:10:00 PM EST, Partial fill upon patient request if the prescription is for a schedule II opioid drug. Start Date: 04/18/24 Status: Ordered Repeat number: 1 naproxen 500 mg oral delayed release tablet 1 tablet = 500 mg, By Mouth, 2 times a day, PRN Pain , Mild, # 30 tablet, 0 Refills, Maintenance, 12/05/23 3:28:00 PM EDT, EC Tablet, [facility]/pharmacy #[id number], Partial fill upon patient request if the prescription is for a schedule II opioid drug., 158, cm, 12/05/23 14:38:00 EDT, Height, 46.7, kg, 12/05/23 14:38:00 EDT, Dry Weight Start Date: 12/05/23 Status: Ordered Quantity: 30.0 Unit: tablet Repeat number: 1 ondansetron 4 mg oral tablet, disintegrating 1 tablet = 4 mg, By Mouth, Every 8 hours, PRN as needed for nausea/vomiting, # 10 tablet, 0 Refills, Maintenance, 04/11/24 6:18:00 PM EST, DIS Tablet, [facility]/pharmacy #[id number], Partial fill upon patient request if the prescription is for a schedule II opioid drug., 159, cm, 04/11/24 13:08:00 EST, Height, 44.5, kg, 03/25/24 2:29:00 EST, Dry Weight Start Date: 04/11/24 Status: Ordered Quantity: 10.0 Unit: tablet Repeat number: 1 Problem List Condition Confirmation Course Effective Dates Status Health St atus Informant Dysmenorrhea Confirmed Active History of chlamydia infection Confirmed 09/2018 Active Depression, major, recurrent, moderate Confirmed Active Underweight Confirmed Active Social History Social History Type Response Smoking Status Never (less than 100 in lifetime) entered on: 09/15/20 Sex Sex Representation Female (finding) Patient Care team information Care Team Personnel Name: Sheyla SWARTZ, Trice Harper Position: [facility] Physician - Primary Care Member Role: PCP Address: [address] [place] [address] Adult & Pediatric [address] Telecom: Care Team Related Persons Name: SHERITA COBURN Name: MORIAH MICHAEL Name: MORIAH MICHAEL Name: ZEV MICHAEL Name: FOSTER SANTIAGO Insurance Providers Guarantor name: MORIAH MICHAEL Health Plan Information #: 1 Payer: [facility] Member Number: NA Policy Number: NA Group Number: NA
--- OUTSIDE RECORDS SUMMARY | 2024-07-08 15:24 | XMS_ITS | Data Portability ---
Author Organization [place] - [facility] Address [address] [place] [id number] Care Team Providers Care Cost Recorder Name Role Phone [facility] ADULT & PEDIATRIC MEDICINE Primary Care Provider Assessment Encounter Date Assessment Date Assessment LastModified by Organization Details LastModified Time 03/27/2022 03/27/2022 Brief Overview: 21 y/o female new to with unremarkable PMH. LMP 12. pt reports dysuria x 5 days, frequency and urgency. she also reports hematuria. she feels suprapubic pressure. no fever. she reports some nausea, no vomiting or diarrhea. denies flank pain. she also reports some vaginal discharge clear. denies itching, purulent drainage, odor. no known exposure to STI but still wants STI testing. pt has prior hx of UTIs. she denies abdominal pain, cp, sob, fever. pt denies any skin rash or genital lesions. Vital Signs: 126/80, HR 85, RR 18, T 97.5, O2 98% Exam: pleasant 21 y/o female well appearing, alert, NAD. eyes: no injection, icterus or discharge. mouth: moist mucous membranes no erythema, uvula is midline. no cervical lymphadenopathy. lungs: CTAB. heart: RRR no murmur rubs or gallops. abdomen: soft, normal bowel sounds, non tender. + suprapubic tenderness. no CVA tenderness. skin: warm and dry no rashes or lesions.strength is normal and equal bilaterally. gait and stance is normal. DDx considered, with rationale: Pyelonephritis: considered but she is afebrile, without nausea, vomiting and no CVA tenderness on exam. Ectopic : considered but HCG was negative. STI: considered BV panel nuswab+ pending. Appendicitis: considered but abdomen is non tender, she is afebrile. Sepsis: considered but vitals stable and she appears well. Results/work up: HCG was negative. UA suggestive of UTI leuks and blood noted. Urine culture is pending. BV panel Nuswab+ pending. Plan: UTI: rest and push fluids. recommend otc Azo take as directed on the package x 2 days for dysuria. urine culture is pending. start Rx Macrobid 100 mg 1 tab pO bid x 7 days take with food. follow up with pcp in 3-5 days or sooner prn. go to the ER with worsening symptoms cp, sob, fever, vomiting, flank pain, jonathan hematuria. Vaginitis: abstain until all labs come back. BV panel nuswab+ pending. will wait for results before treating as she denies itching, odor or any known exposure to STI. follow up with pcp in 3-5 days or sooner prn. go to the ER with worsening symptoms abdominal pain, pelvic pain, vaginal bleeding, fever, vomiting. Proper Personal Protective Equipment (PPE), including gloves, eye protection and masks were donned and doffed appropriately and all equipment cleaned using approved technique with germicidal disposable wipes prior to and after care of this patient according to [facility] infection prevention protocols. Time On Scene with Patient: 00:39:29 [email or web address] Not available 03/27/2022 20:39:47 Plan of Treatment Reminders Order Date Submit Date Provider Last Modified By Organization Details Last Modified Time Details Appointments None recorded. Lab unlisted lab - vaginosis vaginitis plus 2022 023 [email or web address] [facility] (Centralized Electronic Ordering - All Locations), Patient Can Go To The Location Of Their Choice, [address] 3 15:00:19 urinalysis , dipstick 2022 023 [email or web address] 5 [facility], [address] [place], [address], 3 11:38:46 test, urine 2022 023 [email or web address] 5 [facility], [address] [place], [address], 3 11:38:37 culture, urine 2022 023 [place] [facility] (Centralized Electronic Ordering - All Locations), Patient Can Go To The Location Of Their Choice, 07:27:21 Referral None recorded. Procedures None recorded. Surgeries None recorded. Imaging None recorded. Medication Orders Macrobid 100 mg capsule 2022 023 [facility] #[id number], [address] [facility], [place], [address], 11:38:56 Patient TargetsNo targets recorded. Patient InstructionsNo instructions recorded. Reason for Referral None Reported. Results Created Date Observation Date Name Description Value Unit Range Abnormal Flag Note LastModifiedBy Organization Detail LastModifiedTime 03/27/1903/28/2022 URINE CULTU RE specimen description URINE Not Available [facility] (Centralized Electronic Ordering - All Locations) Patient Can Go To The Location Of Their Choice, 03/29/2022 07:27:21 03/27/1903/28/2022 URINE CULTU RE special requests NONE Not Available [facility] (Centralized Electronic Ordering - All Locations) Patient Can Go To The Location Of Their Choice, 03/29/2022 07:27:21 03/27/1903/29/2022 URINE CULTU RE culture Mixed bacte rial bg , indic ative of uroge nital conta minat ion. Inclu marco a Group B beta strep . If this patie nt is pregn ant, pleas e refer to ACOG guide lines (2002 ) for appro priat e scree don and manag ement of colon ized pregn ant women . Not Available [facility] (Centralized Electronic Ordering - All Locations) Patient Can Go To The Location Of Their Choice, 03/29/2022 07:27:21 03/27/1903/29/2022 URINE CULTU RE report status FINAL 2022 Not Available [facility] (Centralized Electronic Ordering - All Locations) Patient Can Go To The Location Of Their Choice, 03/29/2022 07:27:21 03/27/1903/27/2022 urina lysis , dipst ick Appearance cloudy Not Available [facility] [address], [place], [address], 03/27/2022 11:33:14 03/27/19 23 03/27/2022 urina lysis , dipst ick Color yellow Not Available [facility] [address] [place], [address], 03/27/2022 11:33:14 03/27/19 23 03/27/2022 urina lysis , dipst ick Glucose (ref: neg Neg Not Available [facility] [address], [place], [address], 03/27/2022 11:33:14 03/27/19 23 03/27/2022 urina lysis , dipst ick Bilirubin (ref: neg) Neg Not Available [place] [address] [place], [address], 03/27/2022 11:33:14 03/27/19 23 03/27/2022 urina lysis , dipst ick Ketones (ref: neg) Neg Not Available [facility] [address], [place], [address], 03/27/2022 11:33:14 03/27/1903/27/2022 urina lysis , dipst ick Specific [place] (ref: 1.003 - 1.035) 1.015 Not Available [place] [address], [place], [address], 03/27/2022 11:33:14 03/27/1903/27/2022 urina lysis , dipst ick Blood (ref: neg) +++ Not Available [facility] [address] [place], [address], 03/27/2022 11:33:14 03/27/1903/27/2022 urina lysis , dipst ick pH (ref: 5.0-7.0) 8.0 Not Available [facility] [address] [place], [address], 03/27/2022 11:33:14 03/27/19 23 03/27/2022 urina lysis , dipst ick Protein (ref: neg) + Not Available [address], [address], 03/27/2022 11:33:14 03/27/19 23 03/27/2022 urina lysis , dipst ick Urobilinogen (ref: 0.2-1.0) 0.[address] [facility] - [address], [address], 03/27/2022 11:33:14 03/27/19 23 03/27/2022 urina lysis , dipst ick Nitrites (ref: neg) negati ve Not Available [address], [address], 03/27/2022 11:33:14 03/27/19 23 03/27/2022 urina lysis , dipst ick Leukocytes (ref: neg) +++ Not Available [address], [address], 03/27/2022 11:33:14 03/27/19 23 03/27/2022 urina lysis , dipst ick Location [facility] , [address] [place] [address], [id number] [phone] Not Available [address], [address], 03/27/2022 11:33:14 03/27/19 23 03/27/2022 pregn chata test, urine HCG (ref: neg) negati ve Not Available [address], [address], 03/27/2022 11:33:27 03/27/19 23 03/27/2022 pregn chata test, urine Control Visual ized/V alid Not Available [address], [address], 03/27/2022 11:33:27 03/27/19 23 03/27/2022 pregn chata test, urine Location [facility], [facility], [address], [place] [address], [phone] Not Available [facility] [address] [place], [address], 03/27/2022 11:33:27 Result Notes None recorded. Procedures Surgical History Date Name Laterality Status Provider Name and Address Organization Details Recorded Time Tonsillectomy completed MADIE Weber [address] [place], [address], [place] [facility] 03/27/2022 11:26:30 Imaging Results None recorded. Procedure Notes None recorded. Medical Equipment None Reported. Allergies No known drug allergies Medications Name Sig Start Date Stop Date Status Note LastModified by Organization Details LastModified Time fluconazole 150 mg tablet TAKE 1 TABLET TODAY, REPEAT IN 72 HRS active Not Available Not Available No t Available ondansetron HCl 4 mg tablet TAKE 1 TABLET BY MOUTH EVERY 8 HOURS NEEDED FOR NAUSEA OR VOMITING 03/27 completed Not Available Not Available Not Available prochlorper azine maleate 10 mg tablet TAKE 1 TABLET BY MOUTH EVERY 8 HOURS NEEDED FOR NAUSEA/VO MITING active Not Available Not Available No t Available doxycycline monohydrate 100 mg tablet TAKE 1 TABLET BY MOUTH 2 TIMES PER DAY FOR 14 DAYS FOR INFECTION 03/27 completed Not Available Not Available Not Available cephalexin 500 mg capsule TAKE 1 CAPSULE BY MOUTH TWICE DAILY FOR 7 DAYS 03/27 completed Not Available Not Available Not Available ibuprofen 600 mg tablet TAKE 1 TABLET BY MOUTH EVERY 6 HOURS NEEDED FOR PAIN active Not Available Not Available No t Available doxycycline hyclate 100 mg tablet TAKE 1 TABLET BY MOUTH TWICE DAILY FOR 7 DAYS 03/27 completed Not Available Not Available Not Available dicyclomine 10 mg capsule 1 CAPSULE BY MOUTH 3 TIMES A DAY,X7 DAYS NEEDED PAIN , MODERATE active Not Available Not Available No t Available etonogestre l 0.12 mg-ethinyl estradiol 0.015 mg/24 hr vaginal ring INSERT 1 RING VAGINALLY EVERY MONTH DIRECTED 03/27 completed Not Available Not Available Not Available escitalopra m 10 mg tablet TAKE 1 TABLET BY MOUTH EVERY DAY 03/27 completed Not Available Not Available Not Available mirtazapine 7.5 mg tablet TAKE 1/2 TABLET BY MOUTH AT BEDTIME active Not Available Not Available No t Available nitrofurant oin monohydrate /macrocryst als 100 mg capsule TAKE 1 CAPSULE BY MOUTH EVERY 12 HOURS DIRECTED FOR 7 DAYS active Not Available Not Available No t Available Readi-Cat 2 2 % (w/v) oral suspension USE DIRECTED 2 BOTTLES OF 450 ML active Not Available Not Available No t Available Vitals Date Recorded Oxygen saturation Oxygen saturation in Arterial blood by Pulse oximetry Heart rate Respiratory rate Body temperature Systolic blood pressure Diastolic blood pressure Provider Name and Address Organization Details Last Updated DateTime 98 % 98 % 85 /min 18 /min 97.5 [degF] 126 mm[Hg] 80 mm[Hg] Not Available [facility] 11:26:32 Social History Question Answer Notes LastModified by Organizat ion Details LastModified Time Tobacco Smoking Status Never Smoker MADIE Weber [address] [place], [address], [place] [facility] 03/27/2022 11:26:09 What Is Your Level Of Alcohol Consumption? None [email or web address] Information not available 03/27/2022 Excessive Alcohol Or Drug Use No [email or web address] Information not available 03/27/2022 Does This Patient Have A PCP? Yes [email or web address] Information not available 03/27/2022 Has The Patient Seen Their PCP In The Past 6 Months? Yes [email or web address] Information not available 03/27/2022 Is This Patient In Hospice? No [email or web address] Information not available 03/27/2022 Do You Use Any Illicit Or Recreational Drugs? Yes Occasional Marijuana Use [email or web address] Information not available 03/27/2022 Sex: Unknown Functional Status None recorded. Mental Status None recorded. Family History Relationship Description Onset Age of this Age Resolved Age Notes LastModified by Organization Details LastModified Time Father No current problems or disability [email or web address] Not available 11/2022 11:25:43 Mother No current problems or disability Not available 11/2022 11:25:43 Medical History Condition Response Coronary Artery Disease N Parkinson's Disease N COPD N Depression N Hypothyroidism N A-fib N Diabetes N CHF N Cancer N Dementia N Stroke N Asthma N High Cholesterol N Rheumatoid Arthritis N Pulmonary Embolism N Hypertension N Osteoporosis N Kidney Disease N Gynecological HistoryNo gynecological history recorded. Obstetrics History GPAL:G 0 P 0 0 0 0 Past Encounters Encounter ID Performer Location Encounter Start Date Encounter Closed Date Diagnosis/Indication Diagnosis SNOMED-CT Code Diagnosis ICD10 Code Diagnosis Note [id number] Chip Barrientos [facility] [address] [place] [address] 03/27/2022 11:22:28 03/28/2022 15:59:17 Dysuria 83337309 R30.0 Vaginitis 91798976 N76.0 Health Concerns Section Related Observation LastModified by Organization Detai ls LastModified Time None Recorded Concern Status LastModified by Organization Details LastModified Time None Recorded Advance Directives Directive None Recorded Payers Encounter Date Sequence Insurance Name Policy Number Policy Monteiro Covered Member ID Monteiro Member ID Guarantor Name 03/27/2022 1 [place]ICAID-[place]: [facility] [id number] Reena Nguyen Notes Date Note Type Note Provider Name and Address Organization Details Recorded Time 03/27/2022 text/html 21 y/o female ne w to with unremarkable PMH. LMP 12. pt reports dysuria x 5 days, frequency and urgency. she also reports hematuria. she feels suprapubic pressure. no fever. she reports some nausea, no vomiting or diarrhea. denies flank pain. she also reports some vaginal discharge clear. denies itching, purulent drainage, odor. no known exposure to STI but still wants STI testing. pt has prior hx of UTIs. she denies abdominal pain, cp, sob, fever. MADIE Weber [address], [place], [address], [place] [facility] 03/27/2022 20:40:01 OBGyn Episode No OBEpisode recorded.
== END 2024-07-08 13:08 | disposition home or self-care (01) ==
PROVIDERS: Emergency Provider Emergency Medicine; PCP Internal Medicine
DX: M43.19 Spondylolisthesis, multiple sites in spine (principal); M54.2 Cervicalgia; M54.6 Pain in thoracic spine; M79.602 Pain in left arm; M79.601 Pain in right arm
CPT/HCPCS: 72040; 72072; 99282; 99283

== ENCOUNTER → 2024-07-08 11:21 | Outpatient (BNV) | payer OTHER, SELFPAY | PROVIDERS: Visit Provider Radiology Diagnostic Radiology | DX: M51.34 Other intervertebral disc degeneration, thoracic region (principal); M46.92 Unspecified inflammatory spondylopathy, cervical region | CPT/HCPCS: 72040; 72072 ==

== ENCOUNTER 2024-09-05 14:56 | Emergency (ER) | payer OTHER, SELFPAY ==
--- NOTE | ~2024-09-05 | CT_ITS ---
CLINICAL HISTORY: b l flank pain CT abdomen and pelvis without contrast Comparison: None provided Findings: The lung bases are clear. Hepatomegaly. No urolithiasis. Distended stomach. No bowel obstruction. Scattered colonic diverticulosis without diverticulitis or colitis. Normal appendix. Suspect small bilateral adnexal cysts. No acute fracture. IMPRESSION: No acute findings. This document has been electronically signed by: Kalin Olvera MD on 09/05/2024 19:05:19
[2024-09-05 15:08] VITALS: BP 116/73; BP 130/80; PULSE 60; PULSE 84; RESP 18; TEMP 36.4; O2SAT 96; O2SAT 99; BMI 17.0
--- OUTSIDE RECORDS SUMMARY | 2024-09-05 15:18 | XMS_ITS | Data Portability ---
Author Organization [place] - [facility] Address [address] [place] [phone] Care Team Providers Care Executive Housekeeper Name Role Phone [facility] Primary Care Provider [...] after care of this patient according to [facility] infection prevention protocols. Time On Scene with Patient: 00:39:29 [email or web address] Not available 03/27/2022 20:39:47 Plan of Treatment Reminders Order Date Submit Date Provider Last Modified By Organization Details Last Modified Time Details Appointments None recorded. Lab unlisted lab - vaginosis vaginitis plus 2022 023 [email or web address] [facility] (Centralized Electronic Ordering - All Locations), Patient Can Go To The Location Of Their Choice, [address] 3 15:00:19 urinalysis , dipstick 2022 023 [email or web address] 5 [facility], [address] [place], [address], 3 11:38:46 test, urine 2022 023 [email or web address] 5 [facility], [address] [place], [address], 3 11:38:37 culture, urine 2022 023 [place] [facility] (Centralized Electronic Ordering - All Locations), Patient Can Go To The Location Of Their Choice, 07:27:21 Referral None recorded. Procedures None recorded. Surgeries None recorded. Imaging None recorded. Medication Orders Macrobid 100 mg capsule 2022 023 [facility]/Pharmacy #[id number], [address] [facility], [place], [address], 11:38:56 Patient TargetsNo targets recorded. Patient InstructionsNo [...] [facility] [address], [place], [address], 03/27/2022 11:33:14 03/27/19 23 03/27/2022 urina lysis , dipst ick Color yellow Not Available [facility] [address] [place], [address], 03/27/2022 11:33:14 03/27/19 23 03/27/2022 urina lysis , dipst ick Glucose (ref: neg Neg Not Available [facility] [address], [place], [address], 03/27/2022 11:33:14 03/27/19 23 03/27/2022 urina lysis , dipst ick Bilirubin (ref: neg) Neg Not Available [place] [address] [place], [address], 03/27/2022 11:33:14 03/27/19 23 03/27/2022 urina lysis , dipst ick Ketones (ref: neg) Neg Not Available [facility] [address], [place], [address], 03/27/2022 11:33:14 03/27/1903/27/2022 urina lysis , dipst ick Specific [place] (ref: 1.003 - 1.035) 1.015 Not Available [place] [address], [place], [address], 03/27/2022 11:33:14 03/27/1903/27/2022 urina lysis , dipst ick Blood (ref: neg) +++ Not Available [facility] [address] [place], [address], 03/27/2022 11:33:14 03/27/1903/27/2022 urina lysis , dipst ick pH (ref: 5.0-7.0) 8.0 Not Available [facility] [address] [place], [address], 03/27/2022 11:33:14 03/27/19 23 03/27/2022 urina lysis , dipst ick Protein (ref: neg) + Not Available [address], [address], 03/27/2022 11:33:14 03/27/19 23 03/27/2022 urina lysis , dipst ick Urobilinogen (ref: 0.2-1.0) 0.2 Not Available [facility] - [address], [address], 03/27/2022 11:33:14 03/27/19 23 03/27/2022 urina lysis , dipst ick Nitrites (ref: neg) negati ve Not Available [address], [address], 03/27/2022 11:33:14 03/27/19 23 03/27/2022 urina lysis , dipst ick Leukocytes (ref: neg) +++ Not Available [address], [address], 03/27/2022 11:33:14 03/27/19 23 03/27/2022 urina lysis , dipst ick [facility] , [address] [place] [address], [id number] [phone] Not Available [address], [address], 03/27/2022 11:33:14 03/27/19 23 03/27/2022 pregn chata test, urine HCG (ref: neg) negati ve Not Available [address], [address], 03/27/2022 11:33:27 03/27/19 23 03/27/2022 pregn chata test, urine Control Visual ized/V alid Not Available [address], [address], 03/27/2022 11:33:27 03/27/19 23 03/27/2022 pregn chata test, urine Location [facility], [facility], [address], [place] [address], [phone] Not Available [facility] [address] [place], [address], 03/27/2022 11:33:27 Result Notes None recorded. Procedures Surgical History Date Name Laterality Status Provider Name and Address Organization Details Recorded Time Tonsillectomy completed MADIE Weber [address] [place], [address], [place] [facility] 03/27/2022 11:26:30 Imaging Results None recorded. Procedure [...] Social History Question Answer Notes LastModified by [employer] Details LastModified Time Tobacco Smoking Status Never Smoker MADIE Weber [address] [place], [address], [place] [facility] 03/27/2022 11:26:09 Excessive Alcohol Or Drug Use No [email or web address] Information not available 03/27/2022 Does This Patient Have A PCP? Yes [email or web address] Information not available 03/27/2022 Has The Patient Seen Their PCP In The Past 6 Months? Yes Information not available 03/27/2022 Is This Patient In Hospice? No [email or web address] Information not available 03/27/2022 Sex: Unknown Functional Status Question Answer Note LastModified by [employer] Details LastModified Time Do you use any illicit or recreational drugs? Yes occasional marijuana use [email or web address] Information not available 03/27/2022 What is your level of alcohol consumption? None Information not available 03/27/2022 Mental Status None recorded. Family History Relationship Description Onset Age of this Age Resolved Age Notes LastModified by Organization Details LastModified Time Father No current problems or disability [email or web address] Not available 11/2022 11:25:43 Mother No current problems or disability [email or web address] Not available 11/2022 11:25:43 Medical History Condition Response Diabetes N Coronary Artery Disease N CHF N Parkinson's Disease N Cancer N Dementia N Stroke N Depression N Asthma N COPD N Hypothyroidism N High Cholesterol N Rheumatoid Arthritis N Pulmonary Embolism N Hypertension N A-fib N Osteoporosis N Kidney Disease N Gynecological HistoryNo gynecological history recorded. Obstetrics History GPAL:G 0 P 0 0 0 0 Past Encounters Encounter ID Performer Location Encounter Start Date Encounter Closed Date Diagnosis/Indication Diagnosis SNOMED-CT Code Diagnosis ICD10 Code Diagnosis Note [id number] MADIE Weber [facility] - HOME [address] [place] [address] 03/27/2022 11:22:28 03/28/2022 15:59:17 Dysuria 68346023 R30.0 Vaginitis 42618763 N76.0 Health Concerns Section Related Observation LastModified by Organization Detai ls LastModified Time None Recorded Concern Status LastModified by Organization Details LastModified Time None Recorded Advance Directives Directive None Recorded Payers Insurance Date Sequence Insurance Name Policy Number Policy Monteiro Covered Member ID Monteiro Member ID Guarantor Name 03/26/2022 1 *SELF PAY* Reena Nguyen [id number] Reena Nguyen 04/19/2022 1 [place] [facility] Reena Nguyen [id number] Reena Nguyne Notes Date Note Type Note Provider Name and Address Organization Details Recorded Time 03/27/2022 text/html 21 y/o female ne w to with unremarkable PMH. LMP 12/19. pt reports dysuria x 5 days, frequency [...] sob, fever. MADIE Weber [address], [place], [address], [place] [facility] 03/27/2022 20:40:01 OBGyn Episode No OBEpisode recorded.
[2024-09-05 16:29] LABS: MANUAL DIFF FLAG NO
[2024-09-05 16:30] LABS: Basophils Percent Auto 0.3 % (0-2); Eosinophils Percent Auto 0.1 % (0-4); Hematocrit 36.6 % (37.0-47.0); Hemoglobin 12.3 g/dl (12.0-16.0); Imm Gran Abs Auto 0.02 X10*3/uL (0.00-0.03); Imm Gran Pct Auto 0.3 % (0.0-0.4); Lymphocytes Absolute Auto 1.8 X10*3/uL (1.2-4.9); Lymphocytes Percent Auto 23.9 % (20-40); Mean Corpuscular HGB Conc 33.6 g/dl (31.0-35.0); Mean Corpuscular Hemoglobin 29.6 pg (27.0-33.0); Mean Corpuscular Volume 88.2 fL (80.0-98.0); Mean Platelet Volume 11.5 fL (9.4-12.3); Monocytes Absolute Auto 0.4 X10*3/uL (0.1-1.2); Monocytes Percent Auto 5.8 % (2-11); Neutrophils Absolute Auto 5.2 x10*3/uL (2.0-8.3); Neutrophils Percent Auto 69.6 % (45-73); Platelet Count 215 X10*3/uL (160-400); Red Blood Count 4.15 X10*6/uL (4.20-5.50); Red Cell Distribution Width 12.7 % (11.0-16.0); White Blood Count 7.4 X10*3/uL (4.8-10.8)
[2024-09-05 16:32] LABS: Appearance Urine Cloudy; Color Urine Yellow; Glucose Urine UA Negative (Negative); Leukocyte Esterase Urine Negative (Negative); Nitrite Urine Negative (Negative); UMIC TRIGGER UACC YES; Urine Blood Large (3+) (Negative); Urine Ketones Negative (Negative); Urine Protein Negative (Neg-Trace)
[2024-09-05 16:33] LABS: UPreg QC Valid YES; Urine Pregnancy NEGATIVE (NEGATIVE)
[2024-09-05 16:34] LABS: Bacteria Urine None Seen (None Seen); Hyaline Casts Urine 0-2 /LPF (0-2); RBC Urine >20 /HPF (0-2); WBC Urine 0-5 /HPF (0-5)
--- NOTE | 2024-09-05 16:40 | ED.BACK ---
HPI - Back Pain/Injury General Chief Complaint: Back Pain/Injury Stated Complaint: lower back pain Time Seen by Provider: 09/05/24 15:31 Source: patient Mode of arrival: ambulatory Limitations: no limitations History of Present Illness ED Provider: ROSLYN ARSHAD PA-C HPI Narrative: 23 year old female with pmhx significant for HSV, treated with acyclovir and valtrex, presents to the ED today via EMS for evaluation of bilateral flank pain x today. Reports pain began while lying in her bathtub today. No injury/ trauma/ falls. No pain radiation. Admits to associated increased urinary frequency. Denies dysuria, hematuria. No difficulty urinating. Regular bowel movements daily. She is currently at the end of her menstrual period. No abnormal vaginal discharge. No hx of abdominal surgeries. Denies hx of spinal surgery. Denies hx IVDU. Did not trial any OTC pain meds for symptoms. She states that her HSV is typically treated with acyclovir. She reports her provider sent in a prescription for valtrex a few days ago which she took as prescribed. She is unsure if this new medication may be causing her symptoms. Denies any new rashes. She reports testing negative for both gonorrhea and chlamydia 2 weeks ago. Denies fever, chills, NV. Denies saddle anesthesia, bowel or bladder incontinence or retention, numbness/tingling/weakness of the lower extremities. Related Data Previous Rx's ?Medication ?Instructions ?Recorded phenazopyridine 100 mg tablet 200 mg (2 x 100 mg) PO TID 2 days 12/02/23 (Pyridium) #6 tabs Allergies Allergy/AdvReac Type Severity Reaction Status Date / Time No Known Allergies Allergy Verified 09/05/24 15:12 Review of Systems Review of Systems: Yes all other systems are reviewed and are negative PMFSH Past Medical History Attestation statement: The following information was validated with the patient. Source: old records reviewed and nursing notes reviewed Social History Social History Advance Directives: No Advance Directives Information Provided: Yes Do you have a plan to hurt others: No Plan Physical Exam Vital Signs: Vital Signs: Last Vital Signs Temp 98.4 F 09/05/24 19:28 Pulse 64 09/05/24 19:28 Resp 14 09/05/24 19:28 BP 117/83 09/05/24 19:28 Pulse Ox 98 09/05/24 19:28 O2 Del Method Room Air 09/05/24 19:28 BMI result Body Mass Index 17.0 vital signs stable, afebrile General: Well appearing, in no acute distress. Skin: Warm, dry, intact. No rashes or lesions. Head: Normocephalic, atraumatic. EENT: Hearing is intact b/l. Conjunctiva clear. Sclera is anicteric. PERRLA. EOM intact. Moist mucous membranes.? Neck: Supple without LAD Cardiac: Chest wall symmetric. RRR Lungs: Normal respiratory effort without accessory muscle use. CTA bilaterally. No rales, rhonchi, or wheezes.? Abdomen: Soft, non-tender, non-distended. No rebound tenderness or guarding. Positive BS x4. no cvat. Back: No midline spinous or paraspinal tenderness. No step off deformity. Ext: Upper and lower extremities atraumatic, without tenderness, deformity, swelling or erythema Neuro: AOx3. Normal speech. Strength 5/5 intact throughout. No saddle anesthesia. Sensation intact to light touch. NV intact distally. Ambulating with steady gait. Course Course Course Narrative: 0 -- CBC without leukocytosis or left shift. no anemia, h&h stable. Chemistry without acute electrolyte abnormality requiring intervention. No GILBERT. Liver function WNL. Urine showing large blood and over 20 RBCs likely secondary to patient's current menstrual period. Negative nitrites, negative leukocyte esterase, no urine bacteria. No infection. CT abdomen/pelvis unremarkable. Likely musculoskeletal in etiology. > patient treated with Toradol > discussed results with patient. Advised pain control at home. Patient has remained stable throughout ED visit today. Discussed worrisome signs and symptoms and when to return to the ED. All questions answered at this time. Patient is agreeable with disposition and stable for discharge. Medications Administered Discontinued Medications Generic Name Dose Route Start Last Admin Trade Name Freq PRN Reason Stop Dose Admin Ketorolac Tromethamine 30 mg 09/05/24 17:16 09/05/24 17:38 Ketorolac Tromethamine 30 Mg/Ml Vial IM 09/05/24 17:17 30 mg ONCE ONE Administration Medical Decision Making Medical Decision Making MDM Narrative: 23 year old female with pmhx significant for HSV, treated with acyclovir and valtrex, presents to the ED today via EMS for evaluation of bilateral flank pain x today. Differential diagnosis includes renal colic, nephrolithiasis, UTI, msk sprain/strain, muscle spasm. Unlikely vertebral fracture/ subluxation. Unlikely cord compression, Guillain-[place], epidural abscess, cauda equina. Abdominal exam without peritoneal signs. No evidence of acute abdomen at this time. Well appearing. Moderate suspicion for acute hepatobiliary disease (including acute cholecystitis). Less likely to represent acute pancreatitis, perforated ulcer/ GI bleed, acute infectious processes (pneumonia, hepatitis, pyelonephritis), atypical appendicitis, vascular catastrophe, bowel obstruction or viscus perforation. Plan: labs, UA, pain control, CT, serial reassessment Differential Diagnosis Differential Diagnoses: The differential diagnosis associated with the presentation includes as above. Admission/Observation not indicated Lab Data MDM Lab Attestation statement: I reviewed the patient's lab results. as above. 09/05/24 16:25 09/05/24 16:25 Labs: Lab Results 09/05/24 09/05/24 Range/Units 16:22 16:25 WBC 7.4 (4.8-10.8) X10*3/uL RBC 4.15 L (4.20-5.50) X10*6/uL Hgb 12.3 (12.0-16.0) g/dl Hct 36.6 L (37.0-47.0) % MCV 88.2 (80.0-98.0) fL MCH 29.6 (27.0-33.0) pg MCHC 33.6 (31.0-35.0) g/dl RDW 12.7 (11.0-16.0) % Plt Count 215 (160-400) X10*3/uL MPV 11.5 (9.4-12.3) fL Immature Gran % (Auto) 0.3 (0.0-0.4) % Neut % (Auto) 69.6 (45-73) % Lymph % (Auto) 23.9 (20-40) % Schleicher % (Auto) 5.8 (2-11) % Eos % (Auto) 0.1 (0-4) % Baso % (Auto) 0.3 (0-2) % Lymph # (Auto) 1.8 (1.2-4.9) X10*3/uL Schleicher # (Auto) 0.4 (0.1-1.2) X10*3/uL Eos # (Auto) 0.0 (0.0-0.4) X10*3/uL Baso # (Auto) 0.0 (0.0-0.2) X10*3/uL Abs Immat Gran (auto) 0.02 (0.00-0.03) X10*3/uL Absolute Neuts (auto) 5.2 (2.0-8.3) x10*3/uL Absolute Nucleated RBC 0.000 (0.0-0.012) X10*3/uL Nucleated RBC % (auto) 0.0 (0.0-0.2) /100WBC Sodium 142 (135-145) mmol/L Potassium 4.3 (3.3-5.1) mmol/L Chloride 112 H (96-108) mmol/L Carbon Dioxide 24 (22-29) mmol/L Anion Gap 10 L (12-20) BUN 9 (9-16) mg/dL Creatinine 0.70 (0.5-1.4) mg/dL Estim Creat Clear Calc 83.2 Estimated GFR > 60 Random Glucose 115 (60-115) mg/dL Calcium 9.8 (8.4-10.2) mg/dL Total Bilirubin 0.9 (0.0-1.0) mg/dL AST 26 (5-31) U/L ALT 17 (0-31) U/L Alkaline Phosphatase 55 (39-117) U/L Total Protein 7.2 (6.5-8.0) g/dL Albumin 4.7 (3.5-5.0) g/dL Urine Color Yellow Urine Appearance Cloudy Urine pH 5.0 (5.0-9.0) Ur Specific Hughes 1.010 (1.005-1.025) Urine Protein Negative (Neg-Trace) mg/dL Urine Glucose (UA) Negative (Negative) mg/dL Urine Ketones Negative (Negative) mg/dL Urine Blood Large (3+) H (Negative) Urine Nitrite Negative (Negative) Ur Leukocyte Esterase Negative (Negative) Urine RBC >20 H (0-2) /HPF Urine WBC 0-5 (0-5) /HPF Ur Squamous Epith Cells 6-10 (0-2) /HPF Urine Bacteria None Seen (None Seen) Hyaline Casts 0-2 (0-2) /LPF Urine Test NEGATIVE (NEGATIVE) Independent Interpretation I performed an independent interpretation of an: CT Scan Interpretation: ct a/p without renal stone Radiology Impression Discussion of test interpretation with radiology: I have reviewed the radiologist's reading. Radiologist Impression: Date of Service: 09/05/24 Procedure(s): CT abdomen pelvis wo IV con Accession Number(s): [id number] cc: TRICE FLORES MD; Roslyn Arshad~ Report Number: [id number]: Total DLP = 237.00 mGy-cm CLINICAL HISTORY: b l flank pain CT abdomen and pelvis without contrast Comparison: None provided Findings: The lung bases are clear. Hepatomegaly. No urolithiasis. Distended stomach. No bowel obstruction. Scattered colonic diverticulosis without diverticulitis or colitis. Normal appendix. Suspect small bilateral adnexal cysts. No acute fracture. IMPRESSION: No acute findings. This document has been electronically signed by: Kalin Olvera MD on 09/05/2024 19:05:19 Independent Historian Clinical information obtained from an independent historian. History obtained from or confirmed by: Parent and EMS Prescription Management I considered prescription management with: Pain Medication Social Determinants Patient?s care significantly limited by Social Determinants of Health including: Other Social Determinant of Health Critical Care Time Critical Care Time Critical Care Time: No Discharge Plan Discharge Clinical Impression: Flank pain Patient Disposition: Home, Self-Care Instructions: Abdominal Pain (ED), Flank Pain (ED) Additional Instructions: Your workup today is reassuring. Your blood work is normal. The CT scan of your abdomen/ back does not demonstrate any acute findings. Your urine does not demonstrate infection. Your pain may be muscular in nature. I recommend you take 600mg ibuprofen every 6 hours or Tylenol 650mg every 6 hours as needed for pain. If needed, you can alternate these medications so that you take one medication every 3 hours. For example, at noon take ibuprofen, then at 3pm take Tylenol, then at 6pm take ibuprofen. Follow up with your outpatient providers Return with any new or worsening symptoms A case of an emergency call 911. Prescriptions: No Action phenazopyridine [Pyridium] 100 mg tablet 200 mg PO TID 2 Days Qty: 6 0RF Referrals: Trice Flores MD [Primary Care Provider, Internal Medicine] Interventions: ED Discharge Assessment Last Done: 09/05/24 19:28 Discharge Date/Time: 09/05/24 19:29 Print Language: Romanian
[2024-09-05 16:46] LABS: Alanine Aminotransferase 17 U/L (0-31); Albumin Level 4.7 g/dL (3.5-5.0); Alkaline Phosphatase 55 U/L (39-117); Anion Gap 10 (12-20); Aspartate Amino Transferase 26 U/L (5-31); Bilirubin Total 0.9 mg/dL (0.0-1.0); Blood Urea Nitrogen 9 mg/dL (9-16); Calcium 9.8 mg/dL (8.4-10.2); Carbon Dioxide 24 mmol/L (22-29); Chloride 112 mmol/L (96-108); Creatinine Clr Calc Pharmacy 83.2; Estimated Glomerular Filt Rate > 60; Glucose Random 115 mg/dL (60-115); Potassium 4.3 mmol/L (3.3-5.1); Sodium 142 mmol/L (135-145); Total Protein 7.2 g/dL (6.5-8.0)
[2024-09-05 17:04] VITALS: BP 108/68; PULSE 70; RESP 16; TEMP 36.8; O2SAT 99
[2024-09-05] MEDS: Ketorolac Tromethamine 30 MG/ML VIAL IM (17:38)
[2024-09-05 19:05] VITALS: BP 117/83; PULSE 64; RESP 14; TEMP 36.9; O2SAT 98
[2024-09-05 19:28] VITALS: BP 117/83; PULSE 64; RESP 14; TEMP 36.9; O2SAT 98
== END 2024-09-05 19:29 | disposition home or self-care (01) ==
PROVIDERS: Emergency Provider Emergency Medicine; PCP Internal Medicine
DX: R10.2 Pelvic and perineal pain (principal); M54.50 Low back pain, unspecified; R35.0 Frequency of micturition; R79.89 Other specified abnormal findings of blood chemistry; Z79.899 Other long term (current) drug therapy
CPT/HCPCS: 36415; 74176; 80053; 81001; 81025; 85025; 96372; 99284; J1885

== ENCOUNTER → 2024-09-05 17:16 | Outpatient (BNV) | payer OTHER, SELFPAY | PROVIDERS: Emergency Provider Emergency Medicine; PCP Internal Medicine; Visit Provider Radiology Diagnostic Radiology | DX: R16.0 Hepatomegaly, not elsewhere classified (principal) | CPT/HCPCS: 74176 ==

== ENCOUNTER 2024-11-19 19:42 | Emergency (ER) | payer OTHER, SELFPAY ==
--- OUTSIDE RECORDS SUMMARY | 2024-11-16 23:59 | XMS_ITS | Continuity of Care Document ---
Author Organization [facility] Address [address] [place] [address]- Care Team Providers Care Recovery Auditor Name Role Phone Sheyla SWARTZ, Trice Harper Primary Care Physician Encounter [facility] Date(s): 10/10/24 - 11/16/24 [facility] [address] [place], [place] [address] Attending Physician: Trice Carrion MD Encounter Type: Pre Office Visit Allergies, Adverse Reactions, Alerts No Known Allergies [...] influenza virus vaccine, inactivated 01/18/09 Derrick rded [id number] bivalent booster vax 3 02/27/23 Recorded SARS-CoV-2(COVID-19)mRNA-LNP vac([id number]) 02/27/23 Recorded tetanus/diphtheria/pertussis, acel(Tdap) 12/17/20 Recorded tetanus/diphtheria/pertussis, acel(Tdap) 07/31/12 Given Human Papillomavirus Vaccine 01/26/17 Given Human Papillomavirus Vaccine 08/27/15 Recorded Human Papillomavirus Vaccine 09/16/13 Given Meningococcal Conjugate Vaccine 01/26/17 Given Meningococcal [...] B pediatric vaccine 00 Given 1Result Comment: [facility] [id number] 2Result Comment: [01/26/2017] [id number] 3Result Comment: Done at [facility] on [address] Medications fluconazole 150 mg oral tablet 1 tablet = 150 mg, By Mouth, Once, # 1 tablet, 0 Refills, Soft Stop, 08/20/24 11:57:00 AM EDT, Tablet, [facility]/pharmacy #[id number], Partial fill upon patient request if the prescription is for a schedule II opioid drug., 160, cm, 08/20/24 11:28:00 EDT, Height, 42.6, kg, 07/11/24 13:39:00 EDT, Dry Weight Start Date: 08/20/24 Status: Ordered Medication Dispense Status: Completed Quantity: 1.0 Unit: tablet Total Allowed Fills: 1 Fills Dispensed: 0 fluticasone 50 mcg/inh nasal spray See Instructions, SPRAY 1 SPRAY INTO EACH NOSTRIL TWICE A DAY, # 32 mL, 1 Refills, Maintenance, 07/21/24 9:08:00 PM EDT, [id number], 90, SPRAY 1 SPRAY INTO EACH NOSTRIL TWICE A DAY, 160, cm, 07/11/24 13:39:00 EDT, Height, 42.6, kg, 07/11/24 13:39:00 EDT, Dry Weight Start Date: 07/21/24 Status: Ordered Medication Dispense Status: Completed Quantity: 32.0 Unit: mL Total Allowed Fills: 1 Fills Dispensed: 0 hydrOXYzine hydrochloride 25 mg oral tablet 2 tablet, By Mouth, Daily at bedtime, PRN NEEDED FOR ANXIETY/SLEEP, # 60 tablet, 0 Refills, Maintenance, 04/01/24 2:06:00 PM EST, [id number], 158, cm, 03/25/24 2:29:00 EST, Height, 44.5, kg, 03/25/24 2:29:00 EST, Dry Weight Start Date: 04/01/24 Status: Ordered Medication Dispense Status: Completed Quantity: 60.0 Unit: tablet Total Allowed Fills: 1 Fills Dispensed: 0 June04/07 oral tablet 0 Refills, Maintenance, 04/18/24 1:10:00 PM EST, Partial fill upon patient request if the prescription is for a schedule II opioid drug. Start Date: 04/18/24 Status: Ordered Medication Dispense Status: Completed Total Allowed Fills: 1 Fills Dispensed: 0 miconazole 2% topical cream 1 application, Topically, 2 times a day, to affected area until itching resolves, # 45 Gm, 0 Refills, Maintenance, 08/20/24 11:58:00 AM EDT, Cream, [facility]/pharmacy #[id number], Partial fill upon patient requestif the prescription is for a schedule II opioid drug., 1 application Topically 2 times a day,Instr:to affected area until itching resolves, 160, cm, 08/20/24 11:28:00 EDT, Height, 42.6, kg, 07/11/24 13:39:00 EDT, Dry Weight Start Date: 08/20/24 Status: Ordered Medication Dispense Status: Completed Quantity: 45.0 Unit: g Total Allowed Fills: 1 Fills Dispensed: 0 naproxen 500 mg oral delayed release tablet 1 tablet = 500 mg, By Mouth, 2 times a day, PRN Pain , Mild, # 30 tablet, 0 Refills, Maintenance, 12/05/23 3:28:00 PM EDT, EC Tablet, [facility]/pharmacy #[id number], Partial fill upon patient request if the prescription is for a schedule II opioid drug., 158, cm, 12/05/23 14:38:00 EDT, Height, 46.7, kg, 12/05/23 14:38:00 EDT, Dry Weight Start Date: 12/05/23 Status: Ordered Medication Dispense Status: Completed Quantity: 30.0 Unit: tablet Total Allowed Fills: 1 Fills Dispensed: 0 Nonlatex condoms Nonlatex condoms, See Instructions, # 10 each, Refills 11, Tot. Refills 11, Maintenance, Always usecondoms to prevent and sexually transmitted diseases., 08/20/24 11:56:00 AM EDT, Supply, 160, cm, 08/20/24 11:28:00 EDT, Height, 42.6, kg, 07/11/24 13:39:00 EDT, Dry Weight Start Date: 08/20/24 Status: Ordered Medication Dispense Status: Completed Quantity: 10.0 Unit: each Total Allowed Fills: 12 Fills Dispensed: 0 valacyclovir 1 gm oral tablet See Instructions, 1 tablet By Mouth Daily x 5 days Start when you begin to feel symptoms. drink plenty of fluids, # 10 tablet, 0 Refills, Acute 09/01/25 2:09:00 PM EDT, 09/01/24 2:08:00 PM EDT, [facility]/pharmacy #[id number], Partial fill upon patient request if the prescription is for a schedule II opioid drug., 160, cm, 08/20/24 11:28:00 EDT, Height, 42.6, kg, 07/11/24 13:39:00 EDT, Dry Weight Start Date: 6/16/25 Stop Date: 09/01/25 Status: Ordered Medication Dispense Status: Completed Quantity: 10.0 Unit: tablet Total Allowed Fills: 1 Fills Dispensed: 0 Problem List Condition Confirmation Course Effective Dates [...] Personnel Name: Sheyla SWARTZ, Trice Harper Position: [facility] Physician - Primary Care Member Role: PCP Address: [address] [place] [address] [facility] [address] Telecom: Care Team Related Persons Name: SHERITA COBURN Name: MORIAH MICHAEL Name: MORIAH MICHAEL Name: ZEV MICHAEL Name: FOSTER SANTIAGO Insurance Providers Guarantor name: MORIAH MICHAEL Health Plan Information #: 1 Payer: [employer] [place] Payer Identifier: [place] Member Number: [id number] Group Number: [id number] Subscriber Identifier: [id number] Relationship to Subscriber: self Coverage Type: Medicaid (Managed Care) Coverage Verification Date: NA Telecom: NA Address:
[2024-11-19 19:44] VITALS: BP 132/70; PULSE 86; RESP 15; TEMP 36.8; O2SAT 99; BMI 16.2
--- NOTE | 2024-11-19 19:48 | ED.ABDPAIN ---
HPI - Abdominal Pain General Chief Complaint: Abdominal Pain Stated Complaint: ? something in lt eye, unable to eat Time Seen by Provider: 11/19/24 22:56 Source: patient Mode of arrival: ambulatory Limitations: no limitations History of Present Illness ED Provider: Dr. Meseret Triplett HPI narrative: patient comes to the emergency room complaining of about a month of nausea and vomiting and diarrhea a.m. after eating. Patient states that around the same time, she started working night shifts. Patient states that she is very frustrated, nightshift is worsening her anxiety, goes to work at night, comes in the morning, sleeps, eats, goes back to work. Patient states that her anxiety is so bad that now every time that she eats as abdominal cramping and has nausea vomiting sometimes diarrhea. Never constipation. Also, patient complaining of slight pain in her left eye lid, no purulence, mild sticky discharge, no eye pain with eye movements Related Data Previous Rx's ?Medication ?Instructions ?Recorded phenazopyridine 100 mg tablet 200 mg (2 x 100 mg) PO TID 2 days 12/02/23 (Pyridium) #6 tabs dicyclomine 10 mg capsule 10 mg PO TID 3 weeks #63 caps 11/19/24 ondansetron HCl 4 mg tablet 4 mg PO Q6H PRN nausea and 11/19/24 vomiting #14 tabs Allergies Allergy/AdvReac Type Severity Reaction Status Date / Time No Known Allergies Allergy Verified 11/19/24 19:47 Review of Systems Review of Systems Constitutional : No Weight loss, No Fever, No Chills, No Night Sweats, No Fatigue, No Malaise ENT/Mouth : No Hearing loss, No Ear Pain, No Nasal Congestion, No Sinus Pain, No Hoarseness, No sore throat, No Rhinorrhea, No Swallowing Difficulty Eyes: No Eye Pain, No Swelling, No Redness, No Foreign Body, No Discharge, No Vision Changes, complaining of upper eyelid pain on the left Cardiovascular : No Chest Pain, No SOB, No Dyspnea on Exertion, No Orthopnea, No Edema, No Palpitations Respiratory : No Cough, No Sputum, No Wheezing, No Smoke Exposure, No Dyspnea Gastrointestinal : complaining of 1 month of nausea vomiting diarrhea after eating and worse with anxiety, noted to be worse after starting working night shifts Genitourinary : no irregular bleeding, No Dysuria, No Urinary Frequency, No Hematuria, No Urinary Incontinence, No Urgency, No Flank Pain, No Urinary Flow Changes, No Hesitancy Musculoskeletal : No joint pain, No Myalgias, No Joint Swelling Skin : No Skin Lesions, No rash Neuro : No Weakness, No Numbness, No Paresthesias, No Loss of Consciousness, No Dizziness, No Headache Psych : No Anxiety/Panic, No Depression, No SI/HI/AH/VH, No Social Issues, Heme/Lymph: No Bruising, No Bleeding,No Lymphadenopathy Endocrine : No Polyuria, No Polydipsia, No Temperature Intolerance [facility] Social History Social History Smoked in Last 30 Days: No Use of substances other than those prescribed or required for medical reasons: No Advance Directives: No Advance Directives Information Provided: No Do you have a plan to hurt others: No Plan Patient : No Physical Exam ED Exam Exam: Appearance: Alert. Oriented X3. No acute distress. anxious, tearful Eyes: Pupils equal, round and reactive to light. ENT: Pharynx normal. Neck: Normal inspection. Neck supple. No lymph nodes noted. No crepitus CVS: Normal heart rate and rhythm. Pulses normal. Normal S1 and S2 Respiratory: No respiratory distress. Breath sounds normal. No Wheezing. No rales Abdomen: Soft and nontender. No rigidity. No distention. Skin: Skin warm and dry. Normal skin color. Normal skin turgor. Extremities: No lower extremity edema. No Lacerations. No Rash Neuro: Oriented X 3. No motor deficit. No sensory deficit. Moving all extremities. No slurred speech. CN 2 through 12 grossly intact Psych: calm, cooperative, anxious, tearful Vital Signs: Vital Signs - 24 hr 11/19/24 19:44 11/19/24 22:00 Temperature 98.2 F 98.4 F Pulse Rate 86 68 Respiratory Rate 15 18 Blood Pressure 132/70 95/56 L Pulse Oximetry 99 99 Oxygen Delivery Method Room Air Room Air BMI result Body Mass Index 16.2 Course Course Course Narrative: This is a Rapid Medical Examination (RME) performed by Marlene Arshad PA-C in triage. Full HPI, ROS, assessment and treatment plan per primary provider in the Main ED. Hx: 23 yo F here for eval of N/V/D and abd pain x1 mo. increased anxiety and fatigue. also endorsing L eye discomfort, believes she may have a stye. no vision changes. Plan: labs, UA Medical Decision Making Medical Decision Making MDM Narrative: my interpretation of labs: No significant abnormality in patient's hematology or chemistry, normal LFTs I discussed the physical exam and labs with the patient. 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 On physical exam, patient did not have any abdominal pain. Patient was given p.o. baclofen and Zofran here in the emergency room. Patient instructed to follow-up with the primary care physician. If patient has been improvement with symptoms, she may need a referral to Gastroenterology. Patient agrees with plan urinalysis negative for UTI. Differential Diagnosis Differential Diagnoses: The differential diagnosis associated with the presentation includes ( IBS, anxiety, gastritis, gastroenteritis, peptic ulcer) Admission/Observation Consideration of admission/observation: Escalation of care including admission/observation considered ( Given patient's anxiety, symptoms, length of symptoms, observation was considered) Lab Data MDM Lab Attestation statement: I reviewed the patient's lab results. 11/19/24 20:36 11/19/24 20:36 Labs: Lab Results 11/19/24 11/19/24 Range/Units 20:36 23:18 WBC 8.0 (4.8-10.8) X10*3/uL RBC 4.35 (4.20-5.50) X10*6/uL Hgb 12.9 (12.0-16.0) g/dl Hct 38.2 (37.0-47.0) % MCV 87.8 (80.0-98.0) fL MCH 29.7 (27.0-33.0) pg MCHC 33.8 (31.0-35.0) g/dl RDW 12.4 (11.0-16.0) % Plt Count 187 (160-400) X10*3/uL MPV 12.2 (9.4-12.3) fL Immature Gran % (Auto) 0.3 (0.0-0.4) % Neut % (Auto) 61.5 (45-73) % Lymph % (Auto) 28.0 (20-40) % [place] % (Auto) 9.1 (2-11) % Eos % (Auto) 0.6 (0-4) % Baso % (Auto) 0.5 (0-2) % Lymph # (Auto) 2.2 (1.2-4.9) X10*3/uL [place] # (Auto) 0.7 (0.1-1.2) X10*3/uL Eos # (Auto) 0.1 (0.0-0.4) X10*3/uL Baso # (Auto) 0.0 (0.0-0.2) X10*3/uL Abs Immat Gran (auto) 0.02 (0.00-0.03) X10*3/uL Absolute Neuts (auto) 4.9 (2.0-8.3) x10*3/uL Absolute Nucleated RBC 0.000 (0.0-0.012) X10*3/uL Nucleated RBC % (auto) 0.0 (0.0-0.2) /100WBC Sodium 141 (135-145) mmol/L Potassium 4.3 (3.3-5.1) mmol/L Chloride 110 H (96-108) mmol/L Carbon Dioxide 24 (22-29) mmol/L Anion Gap 11 L (12-20) BUN 13 (9-16) mg/dL Creatinine 0.80 (0.5-1.4) mg/dL Estim Creat Clear Calc 69.5 Estimated GFR > 60 Random Glucose 118 H (60-115) mg/dL Calcium 10.1 (8.4-10.2) mg/dL Magnesium 2.0 (1.6-2.6) mg/dL Total Bilirubin 1.3 H (0.0-1.0) mg/dL AST 19 (5-31) U/L ALT 13 (0-31) U/L Alkaline Phosphatase 58 (39-117) U/L Total Protein 7.5 (6.5-8.0) g/dL Albumin 5.2 H (3.5-5.0) g/dL Lipase 22 (8-78) U/L Beta HCG, Quant < 2 mIU/mL Urine Color Dark Yellow Urine Appearance Clear Urine pH 5.5 (5.0-9.0) Ur Specific [place] >= 1.030 H (1.005-1.025) Urine Protein 30 (1+) H (Neg-Trace) mg/dL Urine Glucose (UA) Negative (Negative) mg/dL Urine Ketones Trace (Negative) mg/dL Urine Blood Negative (Negative) Urine Nitrite Negative (Negative) Ur Leukocyte Esterase Negative (Negative) Urine RBC 0-2 (0-2) /HPF Urine WBC 0-5 (0-5) /HPF Ur Squamous Epith Cells 6-10 (0-2) /HPF Urine Bacteria None Seen (None Seen) Hyaline Casts 3-5 (0-2) /LPF External Record Review External record reviewed: Other ( I reviewed patient's ER records from previous visits here in this emergency room, noncontributory) Tests considered The following testing was considered but not selected: I considered ordering a CAT scan given patient's symptoms. However, on physical exam, there were no acute abnormalities, no tenderness, labs look well. at this time, I do not think that a CAT scan or an ultrasound would yield any significant information Prescription Management I considered prescription management with: Other ( I considered prescribing Pepcid /omeprazole. However, patient does not have any typical symptoms of either one) Chronic Conditions Patient?s care impacted by: Other ( Anxiety) Social Determinants Patient?s care significantly limited by Social Determinants of Health including: Other Social Determinant of Health ( new to working night shifts) Medications Administered Discontinued Medications Generic Name Dose Route Start Last Admin Trade Name Freq PRN Reason Stop Dose Admin Dicyclomine HCl 10 mg 11/19/24 23:07 11/19/24 23:14 Dicyclomine Hcl 10 Mg Capsule PO 11/19/24 23:08 10 mg ONCE ONE Administration Ondansetron HCl 4 mg 11/19/24 23:07 11/19/24 23:14 Ondansetron Odt 4 Mg Tab.Rapdis TRANSLINGU 11/19/24 23:08 4 mg ONCE ONE Administration Critical Care Time Critical Care Time Critical Care Time: Yes Total Critical Care Time: 35 Attestation: I have personally provided critical care time. Time includes review of lab data, radiology results, discussion with consultants, and monitoring for potential decompensation. Intervention performed as documented. Discharge Plan Discharge Clinical Impression: Irritable bowel syndrome Patient Disposition: Home, Self-Care Instructions: Irritable Bowel Syndrome (ED) Additional Instructions: Please follow-up with your primary care physician tomorrow. If you have any worsening or new symptoms, please return to the emergency room or call 911 Prescriptions: New dicyclomine 10 mg capsule 10 mg PO TID 21 Days Qty: 63 0RF ondansetron HCl 4 mg tablet 4 mg PO Q6H PRN (Reason: nausea and vomiting) Qty: 14 0RF No Action phenazopyridine [Pyridium] 100 mg tablet 200 mg PO TID 2 Days Qty: 6 0RF Stand Alone Forms: Work/School Release Print Language: Lithuanian
[2024-11-19 20:46] LABS: MANUAL DIFF FLAG NO
[2024-11-19 20:55] LABS: Hematocrit 38.2 % (37.0-47.0); Hemoglobin 12.9 g/dl (12.0-16.0); Imm Gran Abs Auto 0.02 X10*3/uL (0.00-0.03); Imm Gran Pct Auto 0.3 % (0.0-0.4); Lymphocytes Absolute Auto 2.2 X10*3/uL (1.2-4.9); Mean Corpuscular HGB Conc 33.8 g/dl (31.0-35.0); Mean Corpuscular Hemoglobin 29.7 pg (27.0-33.0); Mean Corpuscular Volume 87.8 fL (80.0-98.0); NRBC Abs Auto 0.000 X10*3/uL (0.0-0.012); NRBC Pct Auto 0.0 /100WBC (0.0-0.2); Platelet Count 187 X10*3/uL (160-400); Red Blood Count 4.35 X10*6/uL (4.20-5.50); White Blood Count 8.0 X10*3/uL (4.8-10.8)
[2024-11-19 21:02] LABS: Alanine Aminotransferase 13 U/L (0-31); Albumin Level 5.2 g/dL (3.5-5.0); Alkaline Phosphatase 58 U/L (39-117); Anion Gap 11 (12-20); Aspartate Amino Transferase 19 U/L (5-31); Blood Urea Nitrogen 13 mg/dL (9-16); Calcium 10.1 mg/dL (8.4-10.2); Carbon Dioxide 24 mmol/L (22-29); Chloride 110 mmol/L (96-108); Creatinine Clr Calc Pharmacy 69.5; Estimated Glomerular Filt Rate > 60; Lipase 22 U/L (8-78); Magnesium 2.0 mg/dL (1.6-2.6); Potassium 4.3 mmol/L (3.3-5.1); Sodium 141 mmol/L (135-145); Total Protein 7.5 g/dL (6.5-8.0)
[2024-11-19 22:00] VITALS: BP 95/56; PULSE 68; RESP 18; TEMP 36.9; O2SAT 99
--- OUTSIDE RECORDS SUMMARY | 2024-11-19 22:59 | XMS_ITS | Clinical Summary ---
Author Organization [facility] it Address [id number] [place] [id number] Care Team Providers Care It Support Specialist Name Role Phone Unavailable Primary Care Provider [...] 07/31/2022 07/31/2012, 11/28/2006, 05/09/2002, Additional history exists HIV Screening 04/17/2023 Hepatitis C Screening 04/17/2023 Social Influencers of Health Screening 04/17/2023 COVID-19 Vaccine ( season) 2023 Depression Screening 03/19/2024 Influenza Vaccine (#1) 2024 5, 01/03/2014, 03/28/2012, Additional history exists Hepatitis B Vaccines Completed 08/26/2001, 01/29/2001, 2000 HIB Vaccines Completed 05/09/2002, 05/18, 04/12/2001, Additional history exists Pneumococcal Vaccine: Pediatrics (0 to 5 Years) and At-Risk Patients (6 to 49 Years) Completed 08/29/2002, 06/06/2001, 04/12/2001, Additional history [...]
[2024-11-19 23:32] LABS: Appearance Urine Clear; Glucose Urine UA Negative (Negative); PH 5.5 (5.0-9.0); Specific Gravity - Urine >= 1.030 (1.005-1.025); UMIC TRIGGER UACC YES
[2024-11-20 00:15] VITALS: BP 111/57; PULSE 62; RESP 14; TEMP 36.7; O2SAT 99
[2024-11-20 00:16] VITALS: BP 111/57; PULSE 62; RESP 14; TEMP 36.7; O2SAT 99
== END 2024-11-20 00:18 | disposition home or self-care (01) ==
PROVIDERS: Physician Assistant Medical; Emergency Provider Emergency Medicine; PCP Internal Medicine
DX: K58.9 Irritable bowel syndrome, unspecified (principal); F41.9 Anxiety disorder, unspecified; R11.2 Nausea with vomiting, unspecified; R10.2 Pelvic and perineal pain; R25.2 Cramp and spasm
CPT/HCPCS: 36415; 80053; 81001; 83690; 83735; 84702; 85025; 99283; 99284

== ENCOUNTER 2025-02-13 03:10 | Emergency (ER) | payer OTHER, SELFPAY ==
--- NOTE | 2025-02-13 | ECG_ITS ---
Test Reason : CP Blood Pressure : */* mmHG Vent. Rate : 69 BPM Atrial Rate : 69 BPM P-R Int : 154 ms QRS Dur : 94 ms QT Int : 374 ms P-R-T Axes : 67 65 59 degrees QTcB Int : 400 ms Normal sinus rhythm with sinus arrhythmia Normal ECG When compared with ECG of 29-Jan-2023 16:55, Vent. rate has decreased by 48 bpm Referred By: Annel Pratt Electronically Signed By: Maximus Reddy
--- NOTE | ~2025-02-13 | US_ITS ---
CLINICAL HISTORY: heavy bleeding, severe LLQ pain US pelvis transvaginal Comparison: CR - XR CHEST 1V - 02/13/25 03:54 EST Findings: Transvaginal scanning performed. Anteverted uterus is 9.4 cm length. Normal myometrium. No endometrial lesion, 6 mm thickness. Right ovary 3.4 x 2.5 x 2.6 cm. Multiple follicles are demonstrated. Left ovary 4.1 x 2.3 x 2.7 cm. Multiple follicles are demonstrated. Normal color Doppler of both ovaries. Trace free fluid in the cul-de-sac. IMPRESSION: Normal uterus and ovaries, both of which contain multiple follicles. Trace pelvic free fluid. This document has been electronically signed by: Stevenson Cota MD on 02/13/2025 06:06:12
--- NOTE | ~2025-02-13 | XR_ITS ---
CLINICAL HISTORY: pain 1 view chest x-ray Comparison: CT/SR - CT ABDOMEN PELVIS WO IV CON - 09/05/24 17:31 EDT CR/SR - XR CHEST 2 VIEWS - 01/29/23 16:36 EST Findings: The lungs are clear. Heart size is normal. No acute fracture. IMPRESSION: No acute cardiopulmonary findings. This document has been electronically signed by: Stevenson Cota MD on 02/13/2025 05:01:27
[2025-02-13 03:13] VITALS: BP 112/77; PULSE 73; O2SAT 100
[2025-02-13 03:18] VITALS: BP 106/78; PULSE 53; RESP 18; TEMP 36.6; O2SAT 99; BMI 18.7
[2025-02-13] MEDS: Lactated Ringers 1,000 ML 999 ML IV (03:32)
--- NOTE | 2025-02-13 03:32 | ED_ITS ---
HPI - Abdominal Pain General Chief Complaint: Abdominal Pain Stated Complaint: Abdominal pain Source: patient, EMS and old records reviewed Mode of arrival: EMS Limitations: no limitations History of Present Illness ED Provider: ELVIS HERNÁNDEZ narrative: 24-year-old female with past medical history of PCOS, HSV, prior vaginal delivery she is , she notes her last menstrual period was at the start of January. She states about 10 days ago she started with UTI symptoms and has been on amoxicillin. She went to work tonight and felt terrible. She started with menses cramps earlier in the day and has gone through 2 pads without clots since arriving at work at 23:00. She started to have nausea and vomiting, upper epigastric pain, that hurts to take a deep breath. She is not on any hormones and has not had any recent travel or procedures. She states it hurts to move in her abdomen and take a deep breath. She has no history of clots or issues with her heart. She thinks she felt so terrible that she had a brief syncopal event while sitting down. Her pain goes from the pelvic area to the epigastric. But does not radiate to his shoulder. She denies any sexual activity and denies any chance of . EMS gave IV Zofran and IV fentanyl which improved her pain. She states that this has never happened before MD elicited complaint: abdominal pain Pertinent past history: other Onset (ago): hour(s) (2299) Pain Consistency: constant Location: diffuse, chest and epigastric Severity: severe Quality: stabbing and fullness Radiation: none Migration to: no migration Exacerbating factors: movement Relieving factors: nothing Associated symptoms: nausea, vomiting and syncope Treatments prior to arrival: other Related Data Previous Rx's ?Medication ?Instructions ?Recorded phenazopyridine 100 mg tablet 200 mg (2 x 100 mg) PO T ID 2 days 12/02/23 (Pyridium) #6 tabs dicyclomine 10 mg capsule 10 mg PO TID 3 weeks #63 cap s 11/19/24 ondansetron HCl 4 mg tablet 4 mg PO Q6H PRN nausea and 11/19/24 vomiting #14 tabs erythromycin 5 mg/gram (0.5 %) eye 1 appl ophthalmic ( eye) DAILY #3.5 11/20/24 ointment grams cyclobenzaprine 10 mg tablet 10 mg PO TID PRN muscle s pasm #20 02/13/25 tabs ibuprofen 400 mg tablet 400 mg PO Q8H PRN fever or p ain 02/13/25 #30 tabs ibuprofen 600 mg tablet 600 mg PO Q6H PRN pain #30 t abs 02/13/25 ondansetron 4 mg disintegrating 4 mg PO Q8H PRN nausea and 02/13/25 tablet vomiting #20 tabs Allergies Allergy/AdvReac Type Severity Reaction Status Date / Time No Known Allergies Allergy Verified 02/13/25 03:22 Review of Systems Review of Systems Constitutional : No Fever, No Chills, No Fatigue ENT/Mouth : No sore throat, No Rhinorrhea Eyes: No Eye Pain, No Swelling, No Redness Cardiovascular : No Chest Pain, No SOB, No Dyspnea on Exertion Respiratory : No Cough, No Sputum Gastrointestinal : pos Nausea, pos Vomiting, No Diarrhea, pos abdominal Pain Genitourinary : No Dysuria, No Urinary Frequency, No Hematuria, positive vaginal bleeding Musculoskeletal : No joint pain, No Myalgias, No Joint Swelling Skin : No Skin Lesions, No rash Neuro : No Weakness, No Numbness, No Dizziness, no Headache All other systems reviewed and are negative [facility] Past Medical History Attestation statement: The following information was validated with the patient. Source: old records reviewed Medical History PCOS (polycystic ovarian syndrome) Social History Social History (Updated 02/13/25 @ 03:37 by Annel Pratt DO) Alcohol intake: current Alcohol intake frequency: holidays/special occasions only Patient Tobacco Use Status: Tobacco use Unknown Smoked in Last 30 Days: Yes Use of substances other than those prescribed or required for medical reasons: No Advance Directives: No Physical Exam ED Vital Signs: Vital Signs - 24 hr 02/13/25 03:18 02/13/25 03:58 Temperature 98 F Pulse Rate 53 72 Respiratory Rate 18 18 Blood Pressure 106/78 101/66 Pulse Oximetry 99 99 Oxygen Delivery Method Room Air Room Air BMI result Body Mass Index 18.7 Appearance: Alert. Oriented X3. anxious, in pain, mild acute distress. Eyes: Pupils equal, round and reactive to light. ENT: Pharynx normal. Neck: Normal inspection. Neck supple. CVS: Normal heart rate and rhythm. Pulses normal. Respiratory: No respiratory distress. Breath sounds normal. Abdomen: her abdomen is not distended but she has moderate tenderness to palpation in pelvic area and left lower quadrant with some guarding but no rebound. : Her feminine pad has red blood on it no clots is not saturated, she notes she changed it 1.5 hours ago Skin: Skin warm and dry. Normal skin color. Normal skin turgor. Extremities: No lower extremity edema. Neuro: Oriented X 3. No motor deficit. No sensory deficit. CN2-12 intact Procedures Procedure Narrative Procedure Narrative: EMERGENCY ULTRASOUND INTERPRETATION-Point of Care Trauma (FAST)? Limited Abdominal+Echocardiographic The study reveals: Impression:? -Peritoneum: NO FREE FLUID -Pericardium: NO EFFUSION Indication: abdominal pain -Mechanism:?abrupt onset abdominal pain Fluid (FAST Views):? -Hepatorenal: NEGATIVE -Perisplenic: NEGATIVE -Retrovesical/Pelvic: NEGATIVE -Cardiac: NEGATIVE Performed by: ELVIS 3:41 AM 02/13/2025 (ELVIS MOULTON): CPT Codes: 11750 ; 30921 ; 14903; Reference Codes? [email or web address] Course Course Course Narrative: 5:45 AM 02/13/2025 (ELVIS MOULTON): patient is feeling much better and can tolerate p.o. Reevaluation(s) Reevaluation #1: 6:07 AM 02/13/2025 (ELVIS MOULTON): patient looks much better and feels much better Medical Decision Making Medical Decision Making MDM Narrative: 24-year-old female with past medical history of PCOS, HSV, prior vaginal delivery she is presents with acute onset nausea vomiting abdominal pain states it was so severe she had a suspected syncopal episode but was sitting down when this occurred, she also has reported chest pain but when she points to the chest pain and upper epigastric area. She has distal pulses intact bilaterally, she has no risk factors for PE and is PERC negative. she has no risk factors for ACS. At this time I am going to obtain stat labs start IV fluids, repeat IV fentanyl dose, obtain fast exam for any signs of free fluid. She will need labs as well as formal ultrasound to rule out any pelvic pathology. We will keep a close eye on her bleeding. On arrival her heart rate and blood pressure are stable Differential Diagnosis Differential Diagnoses: The differential diagnosis associated with the presentation includes ruptured ovarian cysts, uterine fibroid, ectopic , atypical chest pain, , dysmenorrhea Admission/Observation Consideration of admission/observation: Escalation of care including admission/observation considered she looks markedly improved she is not having heavy bleeding here her vital signs are stable her hemoglobin had slight drop from prior suspect or anticipate her needing repeat labs as she has not had any significant bleeding here. her chest x-ray shows no free air and her ultrasound is normal her labs are al Lab Data MDM Lab Attestation statement: I reviewed the patient's lab results. 02/13/25 03:37 02/13/25 03:37 Labs: Lab Results 02/13/25 02/13/25 Range/Units 03:37 06:06 WBC 8.9 (4.8-10.8) X10*3/uL RBC 3.80 L (4.20-5.50) X10*6/uL Hgb 11.4 L (12.0-16.0) g/dl Hct 34.1 L (37.0-47.0) % MCV 89.7 (80.0-98.0) fL MCH 30.0 (27.0-33.0) pg MCHC 33.4 (31.0-35.0) g/dl RDW 13.0 (11.0-16.0) % Plt Count 199 (160-400) X10*3/uL MPV 11.9 (9.4-12.3) fL Immature Gran % (Auto) 0.4 (0.0-0.4) % Neut % (Auto) 70.1 (45-73) % Lymph % (Auto) 20.1 (20-40) % [place] % (Auto) 8.1 (2-11) % Eos % (Auto) 0.7 (0-4) % Baso % (Auto) 0.6 (0-2) % Lymph # (Auto) 1.8 (1.2-4.9) X10*3/uL [place] # (Auto) 0.7 (0.1-1.2) X10*3/uL Eos # (Auto) 0.1 (0.0-0.4) X10*3/uL Baso # (Auto) 0.1 (0.0-0.2) X10*3/uL Abs Immat Gran (auto) 0.04 H (0.00-0.03) X10*3/uL Absolute Neuts (auto) 6.2 (2.0-8.3) x10*3/uL Absolute Nucleated RBC 0.000 (0.0-0.012) X10*3/uL Nucleated RBC % (auto) 0.0 (0.0-0.2) /100WBC Sodium 142 (135-145) mmol/L Potassium 4.3 (3.3-5.1) mmol/L Chloride 112 H (96-108) mmol/L Carbon Dioxide 24 (22-29) mmol/L Anion Gap 10 L (12-20) BUN 12 (9-16) mg/dL Creatinine 0.82 (0.5-1.4) mg/dL Estim Creat Clear Calc 74.8 Estimated GFR > 60 Random Glucose 96 (60-115) mg/dL Calcium 9.1 D (8.4-10.2) mg/dL Magnesium 1.9 (1.6-2.6) mg/dL Total Bilirubin 0.4 (0.0-1.0) mg/dL Direct Bilirubin 0.2 (0.0-0.5) mg/dL AST 33 H (5-31) U/L ALT 23 (0-31) U/L Alkaline Phosphatase 61 (39-117) U/L Troponin I High Sens < 2.7 (<3.5-17.0) ng/L C-Reactive Protein < 0.04 (< or = 0.50) mg/dL Total Protein 6.5 (6.5-8.0) g/dL Albumin 4.6 (3.5-5.0) g/dL Lipase 36 (8-78) U/L Beta HCG, Quant < 2 mIU/mL Urine Color Yellow Urine Appearance Clear Urine pH 7.0 (5.0-9.0) Ur Specific [place] 1.015 (1.005-1.025) Urine Protein Negative (Neg-Trace) mg/dL Urine Glucose (UA) Negative (Negative) mg/dL Urine Ketones Negative (Negative) mg/dL Urine Blood Negative (Negative) Urine Nitrite Negative (Negative) Ur Leukocyte Esterase Negative (Negative) Independent Interpretation I performed an independent interpretation of an: EKG, Plain X-Ray ( no pneumothorax, no free air noted) and Ultrasound ( flow is noted, follow up goals but otherwise no acute findings) Interpretation: Rate: 69 Rhythm: NSR [place]: normal Normal P waves. Normal SUN. Normal QRS complex. ST T wave : inverted T-waves in lead V1 otherwise no acute ischemia qTC: 400 prior studies: no prior The study has been interpreted contemporaneously by me. . Radiology Impression Discussion of test interpretation with radiology: I have reviewed the radiologist's reading. Independent Historian Clinical information obtained from an independent historian. History obtained from or confirmed by: EMS External Record Review External record reviewed: Outpatient record, Prior outpatient labs and Prior outpatient radiology Medications Administered Discontinued Medications Generic Name Dose Route Start Last Admin Trade Name Freq PRN Reason Stop Dose Admin Fentanyl 50 mcg 02/13/25 03:21 02/13/25 03:32 Fentanyl Citrate/Pf 100 Mcg/2 Ml Vial IVPUSH 02/13/25 03:22 50 mcg ONCE ONE Administration Protocol Lactated Ringer's 1,000 mls @ 999 mls/hr 02/13/25 03:12 02/13/25 04:36 Lr IV 02/13/25 04:12 Infused .Q1H1M ONE Infusion Discharge Plan Discharge Clinical Impression: Dysmenorrhea Nausea & vomiting Qualifiers: Vomiting type: unspecified Qualified Code(s): R11.2 - Nausea with vomiting, unspecified Patient Disposition: Home, Self-Care Instructions: Dysmenorrhea (ED), Acute Nausea and Vomiting (ED), Acute Abdominal Pain (ED) Additional Instructions: your EKG, chest x-ray, blood counts, electrolytes were all reassuring and normal your urine had no infection or blood in it your ultrasound showed PCOS findings such as follicles but no signs of ovarian torsion, you are not , there are no signs of ectopic please call your OBGYN provider today Return for any worsening symptoms or concerns such as dizziness, increased pain, using more than 2 pads in 1 hour with large clots, or any other concerns Be mindful this could be related to a ruptured cyst continue to monitor your symptoms Findings: Transvaginal scanning performed. Anteverted uterus is 9.4 cm length. Normal myometrium. No endometrial lesion, 6 mm thickness. Right ovary 3.4 x 2.5 x 2.6 cm. Multiple follicles are demonstrated. Left ovary 4.1 x 2.3 x 2.7 cm. Multiple follicles are demonstrated. Normal color Doppler of both ovaries. Trace free fluid in the cul-de-sac. IMPRESSION: Normal uterus and ovaries, both of which contain multiple follicles. Trace pelvic free fluid. This document has been electronically signed by: Stevenson Cota MD on 02/13/2025 06:06:12 Prescriptions: New cyclobenzaprine 10 mg tablet 10 mg PO TID PRN (Reason: muscle spasm) Qty: 20 0RF ibuprofen 600 mg tablet 600 mg PO Q6H PRN (Reason: pain) Qty: 30 0RF ondansetron 4 mg tablet,disintegrating 4 mg PO Q8H PRN (Reason: nausea and vomiting) Qty: 20 0RF ibuprofen 400 mg tablet 400 mg PO Q8H PRN (Reason: fever or pain) Qty: 30 0RF No Action phenazopyridine [Pyridium] 100 mg tablet 200 mg PO TID 2 Days Qty: 6 0RF dicyclomine 10 mg capsule 10 mg PO TID 21 Days Qty: 63 0RF ondansetron HCl 4 mg tablet 4 mg PO Q6H PRN (Reason: nausea and vomiting) Qty: 14 0RF erythromycin 5 mg/gram (0.5 %) ointment 1 appl ophthalmic (eye) DAILY Qty: 3.5 0RF Stand Alone Forms: Work/School Release Print Language: Norwegian
[2025-02-13 03:51] LABS: Hematocrit 34.1 % (37.0-47.0); Hemoglobin 11.4 g/dl (12.0-16.0); Imm Gran Abs Auto 0.04 X10*3/uL (0.00-0.03); Imm Gran Pct Auto 0.4 % (0.0-0.4); Lymphocytes Absolute Auto 1.8 X10*3/uL (1.2-4.9); MANUAL DIFF FLAG NO; Mean Corpuscular HGB Conc 33.4 g/dl (31.0-35.0); Mean Corpuscular Hemoglobin 30.0 pg (27.0-33.0); Mean Corpuscular Volume 89.7 fL (80.0-98.0); NRBC Abs Auto 0.000 X10*3/uL (0.0-0.012); NRBC Pct Auto 0.0 /100WBC (0.0-0.2); Platelet Count 199 X10*3/uL (160-400); Red Blood Count 3.80 X10*6/uL (4.20-5.50); White Blood Count 8.9 X10*3/uL (4.8-10.8)
[2025-02-13 03:58] VITALS: BP 101/66; PULSE 72; RESP 18; O2SAT 99
[2025-02-13 04:17] LABS: Alanine Aminotransferase 23 U/L (0-31); Albumin Level 4.6 g/dL (3.5-5.0); Alkaline Phosphatase 61 U/L (39-117); Anion Gap 10 (12-20); Aspartate Amino Transferase 33 U/L (5-31); Blood Urea Nitrogen 12 mg/dL (9-16); Calcium 9.1 mg/dL (8.4-10.2); Carbon Dioxide 24 mmol/L (22-29); Chloride 112 mmol/L (96-108); Creatinine Clr Calc Pharmacy 74.8; Estimated Glomerular Filt Rate > 60; Lipase 36 U/L (8-78); Magnesium 1.9 mg/dL (1.6-2.6); Potassium 4.3 mmol/L (3.3-5.1); Sodium 142 mmol/L (135-145); Total Protein 6.5 g/dL (6.5-8.0); Troponin-I High Sensitivity < 2.7 ng/L (<3.5-17.0)
--- NOTE | 2025-02-13 04:35 | PC.NURSE ---
pt off unit to U/S. ambulating with a steady gait. no apparent distress at this time
--- OUTSIDE RECORDS SUMMARY | 2025-02-13 04:44 | XMS_ITS | Clinical Summary ---
Author Organization [facility] ity Address [address] [place] [id number] Care Team Providers Care Adobe Layer Name Role Phone Unavailable Primary Care Provider [...] 04/17/2023 Social Influencers of Health Screening 04/17/2023 Depression Screening 03/19/2024 COVID-19 Vaccine ( - 2024- season) 2024 Influenza Vaccine (#1) 2024 5, 01/03/2014, 03/28/2012, Additional history exists RSV Immunization Adult Patients (1 - 1-dose 75+ series) 12/21/2075 Hepatitis B Vaccines Completed 08/26/2001, 01/29/2001, 2000 [...] on patient's age to complete this topic Meningococcal B Vaccine Aged Out No l onger eligible based on patient's age to complete this topic RSV Immunization Patients Under 20 months Aged Out No longer eligible based on patient's age to complete this topic
--- OUTSIDE RECORDS SUMMARY | 2025-02-13 04:44 | XMS_ITS | Data Portability ---
Author Organization [place] [facility] Address [address] [place] [id number] Care Team Providers Care Rf Manager Name Role Phone [facility] Primary Care Provider Assessment Encounter Date Assessment Date Assessment LastModified by Organization Details LastModified Time 03/27/2022 03/27/2022 Brief Overview: 21 y/o female new to with unremarkable PMH. LMP 12/19. pt [...] after care of this patient according to [facility]'s infection prevention protocols. Time On Scene with Patient: 00:39:29 Not available 03/27/2022 20:39:47 Plan of Treatment Reminders Order Date Submit Date Provider Last Modified By Organization Details Last Modified Time Details Appointments None recorded. Lab unlisted lab - vaginosis vaginitis plus 2022 023 [email or web address] [facility] (Centralized Electronic Ordering - All Locations), Patient Can Go To The Location Of Their Choice, [id number] 15:00:19 urinalysis , dipstick 2022 023 [email or web address] 5 [facility], [address] [place], [address], 3 11:38:46 test, urine 2022 023 [email or web address] 5 [facility], [address] [place], [address], 3 11:38:37 culture, urine 2022 023 [email or web address] [facility] (Centralized Electronic Ordering - All Locations), Patient Can Go To The Location Of Their Choice, 07:27:21 Referral None recorded. Procedures None recorded. Surgeries None recorded. Imaging None recorded. Medication Orders Macrobid 100 mg capsule 2022 023 [facility][id number], [id number], [place], [address], 11:38:56 Patient TargetsNo targets recorded. Patient InstructionsNo [...] The Location Of Their Choice, 03/29/2022 07:27:21 03/27/19 23 03/27/2022 urina lysis , dipst ick Appearance cloudy Not Available [facility] [address], [place], [address], 03/27/2022 11:33:14 03/27/19 23 03/27/2022 urina lysis , dipst ick Color yellow Not Available [address] [place], [place], [address], 03/27/2022 11:33:14 03/27/19 23 03/27/2022 urina lysis , dipst ick Glucose (ref: neg Neg Not Available [address] [place], [address], 03/27/2022 11:33:14 03/27/1903/27/2022 urina lysis , dipst ick Bilirubin (ref: neg) Neg Not Available [address], [address], 03/27/2022 11:33:14 03/27/19 23 03/27/2022 urina lysis , dipst ick Ketones (ref: neg) Neg Not Available [address] [place], [place], [address], 03/27/2022 11:33:14 03/27/19 23 03/27/2022 urina lysis , dipst ick Specific Douglas (ref: 1.003 - 1.035) 1.015 Not Available [address] [place], [place], [address], 03/27/2022 11:33:14 03/27/1903/27/2022 urina lysis , dipst ick Blood (ref: neg) +++ Not Available [address] [place], [place], [address], 03/27/2022 11:33:14 03/27/1903/27/2022 urina lysis , dipst ick pH (ref: 5.0-7.0) 8.0 Not Available [address] [place], [place], [address], 03/27/2022 11:33:14 03/27/19 23 03/27/2022 urina lysis , dipst ick Protein (ref: neg) + Not Available [facility] [place] [facility] [address] [place], [address], 03/27/2022 11:33:14 03/27/19 23 03/27/2022 urina lysis , dipst ick Urobilinogen (ref: 0.2-1.0) 0.2 Not Available [facility] [place] [address] [place], [address], 03/27/2022 11:33:14 03/27/19 23 03/27/2022 urina lysis , dipst ick Nitrites (ref: neg) negati ve Not Available [facility] - [address], [address], 03/27/2022 11:33:14 03/27/19 23 03/27/2022 urina lysis , dipst ick Leukocytes (ref: neg) +++ Not Available [facility] - [address], [address], 03/27/2022 11:33:14 03/27/19 23 03/27/2022 urina lysis , dipst ick Location [facility], [facility], [address] [place] [address], [phone] Not Available [facility] - [address], [address], 03/27/2022 11:33:14 03/27/19 23 03/27/2022 pregn chata test, urine HCG (ref: neg) negati ve Not Available [address], [address], 03/27/2022 11:33:27 03/27/19 23 03/27/2022 pregn chata test, urine Control Visual ized/V alid Not Available [facility] - [address], [address], 03/27/2022 11:33:27 03/27/19 23 03/27/2022 pregn chata test, urine Location [facility], [facility], [address], [place] [address], [phone] Not Available [facility] [address] [place], [address], 03/27/2022 11:33:27 Result Notes None recorded. Procedures Surgical History Date Name Laterality Status Provider Name and Address Organization Details Recorded Time Tonsillectomy completed MADIE Weber [address] [place], [address], [place] [facility] 03/27/2022 11:26:30 Imaging Results None recorded. [...] t Available Vitals Date Recorded Oxygen saturation Heart rate Respiratory rate Body temperature Systolic And Diastolic Provider Name and Address Organization Details Last Updated DateTime 98 % 85 /min 18 /min 97.5 [degF] 126/80 mm[Hg] Not Available [facility] 11:26:32 Social History Question Answer Notes LastModified by [employer] Details LastModified Time Tobacco Smoking Status Never Smoker MADIE Weber [address] [place], [address], [place] [facility] 03/27/2022 11:26:09 Excessive Alcohol Or Drug Use No [email or web address] Information not available 03/27/2022 Does This Patient Have A PCP? Yes [email or web address] Information not available 03/27/2022 Has The Patient Seen Their PCP In The Past 6 Months? Yes [email or web address] Information not available 03/27/2022 Is This Patient In Hospice? No [email or web address] Information not available 03/27/2022 Sex: Unknown Functional Status Question Answer Note LastModified by [employer] Details LastModified Time Do you use any illicit or recreational drugs? Yes occasional marijuana use [email or web address] Information not available 03/27/2022 What is your level of alcohol consumption? None [email or web address] Information not available 03/27/2022 Mental Status None recorded. Family History Relationship Description Onset Age of this Age Resolved Age Notes LastModified by Organization Details LastModified Time Father No current problems or disability [email or web address] Not available 11/2022 11:25:43 Mother No current problems or disability [email or web address] Not available 11/2022 11:25:43 Medical History Condition Response Diabetes N Coronary Artery Disease N CHF N Parkinson's Disease N Cancer N Stroke N Dementia N Hypothyroidism N Depression N COPD N Asthma N High Cholesterol N Rheumatoid Arthritis N Pulmonary Embolism N Hypertension N Osteoporosis N A-fib N Kidney Disease N Gynecological HistoryNo gynecological history recorded. Obstetrics History GPAL:G 0 P 0 0 0 0 Past Encounters Encounter ID Performer Location Encounter Start Date Encounter Closed Date Diagnosis/Indication Diagnosis SNOMED-CT Code Diagnosis ICD10 Code Diagnosis IMO Codes Diagnosis Note [id number] MADIE Weber [facility] [address] [place] [address] 03/27/2022 11:22:28 03/28/2022 15:59:17 Dysuria 69120045 R30.0 Vaginitis 37706573 N76.0 Health Concerns Section Related Observation LastModified by Organization Detai ls LastModified Time None Recorded Concern Status LastModified by Organization Details LastModified Time None Recorded Advance Directives Directive None Recorded Payers Insurance Date Sequence Insurance Name Policy Number Policy Monteiro Covered Member ID Monteiro Member ID Guarantor Name 03/26/2022 1 *SELF PAY* Reena Nguyen [id number] Reena Nguyen 04/19/2022 1 [place] [facility] Reena Nguyen [id number] Reena Nguyen Notes Date Note Type Note Provider Name and Address Organization Details Recorded Time 03/27/2022 text/html 21 y/o female new to with unremarkable PMH. LMP 12/19. pt [...] sob, fever. MADIE Weber [address], [place], [address], [place] [facility] 03/27/2022 20:40:01 OBGyn Episode No OBEpisode recorded.
[2025-02-13 06:12] LABS: Appearance Urine Clear; Glucose Urine UA Negative (Negative); PH 7.0 (5.0-9.0); Specific Gravity - Urine 1.015 (1.005-1.025)
[2025-02-13 06:49] VITALS: BP 93/59; PULSE 65; RESP 18; TEMP 36.8; O2SAT 98
[2025-02-13 06:56] VITALS: BP 93/59; PULSE 65; RESP 18; TEMP 36.8; O2SAT 98
== END 2025-02-13 06:57 | disposition home or self-care (01) ==
PROVIDERS: Emergency Provider Emergency Medicine; PCP Internal Medicine
DX: N94.4 Primary dysmenorrhea (principal); R25.2 Cramp and spasm; R11.2 Nausea with vomiting, unspecified; R10.22 Pelvic and perineal pain left side; R10.13 Epigastric pain; R07.89 Other chest pain; Z79.899 Other long term (current) drug therapy
CPT/HCPCS: 36415; 71045; 76604; 76705; 76830; 76856; 80048; 80076; 81003; 83690; 83735; 84484; 84702; 85025; 86140; 93005; 93308; 93975; 96361; 96374; 99284; J3010; J7120

== ENCOUNTER → 2025-02-13 03:21 | Outpatient (BNV) | payer OTHER, SELFPAY | PROVIDERS: Emergency Provider Emergency Medicine; PCP Internal Medicine; Visit Provider Radiology Vascular & Interventional Radiology | DX: N92.0 Excessive and frequent menstruation with regular cycle (principal); R10.32 Left lower quadrant pain; R07.9 Chest pain, unspecified | CPT/HCPCS: 71045; 76830; 76856 ==

== ENCOUNTER → 2025-02-13 03:22 | Outpatient (BNV) | payer OTHER, SELFPAY | PROVIDERS: Emergency Provider Emergency Medicine; PCP Internal Medicine; Visit Provider Internal Medicine Cardiovascular Disease | DX: R07.9 Chest pain, unspecified (principal) | CPT/HCPCS: 93010 ==

== ENCOUNTER 2025-03-03 09:59 | Emergency (ER) | payer OTHER, SELFPAY ==
--- NOTE | ~2025-03-03 | CT_ITS ---
EXAMINATION: CT ANGIOGRAM HEAD AND NECK CLINICAL INFORMATION: Headache and left-sided numbness. 24-year-old female. COMPARISON: None available. TECHNIQUE: Noncontrast axial imaging of the head was performed. This was followed by test bolus sequences and head and neck intravenous bolus administration 70 mL of Omnipaque 350. Helical imaging was performed in the axial plane from the aortic arch to the skull vertex. The data was processed at the manufacturing engineering technologist's workstation for generation of MIP sequences. Angled MIPs and volume rendered reformatted images were also generated at an offline 3D workstation. Stenoses are assessed in accordance with NASCET criteria unless otherwise indicated. This CT examination was performed using dose optimization techniques as appropriate, variously including the following: *Automated exposure control *Adjustment of mA and/or kV according to patient size (this includes techniques or standardized protocols for targeted exams where dose is matched to indication/reason for exam; i.e. extremities or head) *Use of iterative reconstruction technique FINDINGS: NONCONTRAST HEAD CT: There is no evidence of intracranial hemorrhage or extra-axial fluid collection. There is no mass effect, or edema. No CT evidence of acute territorial infarct. Ventricles, sulci, and cisterns are normal in size and configuration for patient age. No hydrocephalus. No midline shift. No significant white matter abnormalities. Globes and orbital contents image normally. No extracranial soft tissue abnormalities. The paranasal sinuses, mastoid air cells, and tympanic cavities are normally aerated. No suspicious bony abnormalities. NECK CTA: (Mildly degraded by motion artifact) -AORTIC ARCH: Normal in caliber. Mild atheromatous calcification. Three-vessel branching pattern. -GREAT VESSEL ORIGINS: Widely patent. No stenosis. -RIGHT COMMON CAROTID ARTERY: Normal in course and caliber to the level of the bifurcation. -CERVICAL RIGHT INTERNAL CAROTID ARTERY: Motion degraded. Otherwise normal in course and caliber. -LEFT COMMON CAROTID ARTERY: Normal in course and caliber to the level of the bifurcation. -CERVICAL LEFT INTERNAL CAROTID ARTERY: Motion degraded. Otherwise normal in course and caliber. -CERVICAL RIGHT VERTEBRAL ARTERY: Codominant. Normal in course and caliber into the skull base allowing for motion. -CERVICAL LEFT VERTEBRAL ARTERY: Codominant. Normal in course and caliber into the skull base allowing for motion. OTHER, SOFT TISSUES: -No lymphadenopathy or mass. No abnormal fluid collection or soft tissue swelling. -Normal thyroid. -Imaged superior mediastinal structures normal. -Imaged lung apices clear. CTA OF THE BRAIN: -INTRACRANIAL INTERNAL CAROTID ARTERIES: No focal stenosis or occlusion. Ophthalmic artery origins are normal. -RIGHT ANTERIOR CEREBRAL ARTERY: Normal A1 segment. Normal arborization of the distal segments. -LEFT ANTERIOR CEREBRAL ARTERY: Normal A1 segment. Normal arborization of the distal segments. -ANTERIOR COMMUNICATING ARTERY: Normal. -RIGHT MIDDLE CEREBRAL ARTERY: Normal M1 segment of the MCA without focal stenosis or occlusion. Normal arborization of the distal segments. -LEFT MIDDLE CEREBRAL ARTERY: Normal M1 segment of the MCA without focal stenosis or occlusion. Normal arborization of the distal segments. -RIGHT VERTEBRAL ARTERY V4: Mildly motion degraded. Normal in course and caliber. Normal PICA branch. -LEFT VERTEBRAL ARTERY V4: Mildly motion degraded. Normal in course and caliber. Normal PICA branch. -BASILAR ARTERY: Normal without focal stenosis or occlusion. Normal appearance of the proximal superior cerebellar arteries. Normal basilar tip. -RIGHT POSTERIOR CEREBRAL ARTERY: The P1 segment is diminutive. origin of the TRESTLE BUILDER with robust opacification of the posterior communicating artery. Normal opacification of the distal TRESTLE BUILDER segments. -LEFT POSTERIOR CEREBRAL ARTERY: Normal P1 segment. Normal opacification of the distal TRESTLE BUILDER segments. -POSTERIOR COMMUNICATING ARTERIES: Normal opacification of the superior sagittal, straight, transverse, and sigmoid sinuses. No venous thrombosis. CT/CT angio head neck IMPRESSION: NONCONTRAST HEAD CT: 1. No intracranial hemorrhage or mass effect. No CT evidence of acute territorial infarct. CTA NECK: 1. Mildly motion degraded. Within these confines, no evidence of significant stenosis, occlusion, dissection, or aneurysm of the major cervical arterial vasculature. CTA HEAD: 1. Mildly motion degraded. Within these confines, no evidence of significant stenosis, occlusion, dissection, or aneurysm of the major intracranial arterial vasculature. 2. The major cortical and dural venous sinuses are patent. Electronically signed by: Daniel Eugene MD 03/03/2025 01:11 PM [facility] [place]
[2025-03-03 10:32] VITALS: BP 119/60; PULSE 80; RESP 16; TEMP 36.6; O2SAT 97; BMI 17.4
--- NOTE | 2025-03-03 10:32 | ED.NEUROSD ---
HPI - Neuro Symptoms/Deficit General Chief Complaint: Neuro Symptoms/Deficit Stated Complaint: facial numbness/tingling L side Time Seen by Provider: 03/03/25 11:27 Source: patient Mode of arrival: ambulatory Limitations: no limitations History of Present Illness ED Provider: Dr. Andrea HPI Narrative: 24-year-old female presented hospital today for left-sided facial paresthesia. Patient stated that this started earlier today at work. Patient's works overnight. Started at 02:00. She is also complaining of 3 days of left-sided headache. Patient has complains of numbness in her left leg as well. No numbness in the left arm. Describing a pounding headache on the left side. With minimal photophobia. Related Data Previous Rx's ?Medication ?Instructions ?Recorded phenazopyridine 100 mg tablet 200 mg (2 x 100 mg) PO TID 2 days 12/02/23 (Pyridium) #6 tabs dicyclomine 10 mg capsule 10 mg PO TID 3 weeks #63 caps 11/19/24 ondansetron HCl 4 mg tablet 4 mg PO Q6H PRN nausea and 11/19/24 vomiting #14 tabs erythromycin 5 mg/gram (0.5 %) eye 1 appl ophthalmic (eye) DAILY #3.5 11/20/24 ointment grams cyclobenzaprine 10 mg tablet 10 mg PO TID PRN muscle spasm #20 02/13/25 tabs ibuprofen 400 mg tablet 400 mg PO Q8H PRN fever or pain 02/13/25 #30 tabs ibuprofen 600 mg tablet 600 mg PO Q6H PRN pain #30 tabs 02/13/25 ondansetron 4 mg disintegrating 4 mg PO Q8H PRN nausea and 02/13/25 tablet vomiting #20 tabs Allergies Allergy/AdvReac Type Severity Reaction Status Date / Time No Known Allergies Allergy Verified 03/03/25 10:35 Review of Systems Review of Systems: Pertinent review of systems as mentioned in [facility]. All other system otherwise negative. [facility] Past Medical History [facility] Narrative: Medical history as mentioned in HPI Medical History PCOS (polycystic ovarian syndrome) Social History Social History (Updated 02/13/25 @ 03:37 by Annel Pratt DO) Alcohol intake: current Alcohol intake frequency: holidays/special occasions only Patient Tobacco Use Status: Tobacco use Unknown Advance Directives: No Advance Directives Information Provided: Yes Physical Exam Exam: Exam: General: Pleasant, no distress, interacting appropriately Head: Normacephalic, atraumatic ENT: oral mucosa moist, neck supple, no tracheal deviation Cardiovascular: regular rate, regular rhythm, no murmurs, rubbing, gallops Respiratory: CTAB, no wheeze, rales, rhonchi Neurological: Awake and alert, no facial droop noted, see NIH score for stroke evaluation. Skin: Warm and dry Psychiatric: Appropriate mood and thoughts Vital Signs: Vital Signs: Last Vital Signs Temp 98 F 03/03/25 10:32 Pulse 70 03/03/25 14:00 Resp 20 03/03/25 14:00 BP 104/56 L 03/03/25 14:00 Pulse Ox 96 03/03/25 14:00 O2 Del Method Room Air 03/03/25 14:00 BMI result Body Mass Index 17.4 Course Course Course Narrative: 20-year-old female with past medical history is unremarkable as well as recent left-sided headaches for 3 days. Last night at 02:00 she noted tingling to the left side of the face. She denies any recent any upper respiratory infection. She has no rash. She has no vision changes. She has never had anything this before. No recent chiropractor or neck trauma. She does not know increased neck pain. She has had no fevers. She has a picture from when this started and there was definitely asymmetry of the face. She has not suffer from any known migraines. On exam she has no lesions noted and she has mild facial asymmetry when trying to tightly close eyes. this is a RAPID medical screening exam the rest of the history and physical exam is to be done by the main provider. 10:36 AM 03/03/2025 (ELVIS MOULTON): Medications Administered Discontinued Medications Generic Name Dose Route Start Last Admin Trade Name Zen PRN Reason Stop Dose Admin Diphenhydramine HCl 25 mg 03/03/25 11:49 03/03/25 12:07 Diphenhydramine Hcl 50 Mg/Ml Vial IVPUSH 03/03/25 11:50 25 mg ONCE ONE Administration Lactated Ringer's 1,000 mls @ 999 mls/hr 03/03/25 10:42 03/03/25 12:15 Lr IV 03/03/25 11:42 Infused .Q1H1M ONE Infusion Magnesium Sulfate 2 gm in 50 mls @ 50 mls/hr 03/03/25 11:49 03/03/25 14:06 Magnesium Sulfate/H2o IV 03/03/25 12:48 Infused ONCE ONE Infusion Lactated Ringer's 1,000 mls @ 999 mls/hr 03/03/25 12:00 03/03/25 12:13 Lr IV 03/03/25 13:00 999 mls/hr .Q1H1M ANAHI Administration Iohexol 100 ml 03/03/25 12:30 03/03/25 12:31 Iohexol 350 Mg/Ml 100 Ml Infus..Btl IV 03/03/25 12:31 70 ml ONCE ONE Administration Metoclopramide HCl 5 mg 03/03/25 11:49 03/03/25 12:08 Metoclopramide Hcl 10 Mg/2 Ml Vial IV 03/03/25 11:50 5 mg ONCE ONE Administration Medical Decision Making Medical Decision Making [facility] Narrative: 24-year-old female presented hospital today for evaluation of left-sided headache and left-sided facial paresthesia. I do not think this is a stroke based on my evaluation. I suspect this may be complex migraine versus a facial nerve paresthesia. We will plan to give patient some IV fluid, IV Reglan IV magnesium, IV Benadryl will be given for Reglan dystonia. We will plan to reassess patient afterward. Patient stated she is feeling better at this time. CTA head and neck has been largely negative. Any signs of acute abnormality. UA did not show any signs of UTI. Patient will be discharged home. Differential Diagnosis Differential Diagnoses: The differential diagnosis associated with the presentation includes CVA, complex migraine, facial paresthesia, Miller's palsy Lab Data [facility] Lab Attestation statement: I reviewed the patient's lab results. 03/03/25 10:43 03/03/25 10:43 Labs: Lab Results 03/03/25 03/03/25 Range/Units 10:43 14:43 WBC 7.5 (4.8-10.8) X10*3/uL RBC 4.18 L (4.20-5.50) X10*6/uL Hgb 12.6 (12.0-16.0) g/dl Hct 38.1 (37.0-47.0) % MCV 91.1 (80.0-98.0) fL MCH 30.1 (27.0-33.0) pg MCHC 33.1 (31.0-35.0) g/dl RDW 12.5 (11.0-16.0) % Plt Count 209 (160-400) X10*3/uL MPV 12.0 (9.4-12.3) fL Immature Gran % (Auto) 0.3 (0.0-0.4) % Neut % (Auto) 54.5 (45-73) % Lymph % (Auto) 35.6 (20-40) % [place] % (Auto) 8.4 (2-11) % Eos % (Auto) 0.8 (0-4) % Baso % (Auto) 0.4 (0-2) % Lymph # (Auto) 2.7 (1.2-4.9) X10*3/uL [place] # (Auto) 0.6 (0.1-1.2) X10*3/uL Eos # (Auto) 0.1 (0.0-0.4) X10*3/uL Baso # (Auto) 0.0 (0.0-0.2) X10*3/uL Abs Immat Gran (auto) 0.02 (0.00-0.03) X10*3/uL Absolute Neuts (auto) 4.1 (2.0-8.3) x10*3/uL Absolute Nucleated RBC 0.000 (0.0-0.012) X10*3/uL Nucleated RBC % (auto) 0.0 (0.0-0.2) /100WBC ESR < 1 L (1-20) MM/HR Sodium 142 (135-145) mmol/L Potassium 4.2 (3.3-5.1) mmol/L Chloride 109 H (96-108) mmol/L Carbon Dioxide 27 (22-29) mmol/L Anion Gap 10 L (12-20) BUN 11 (9-16) mg/dL Creatinine 0.62 (0.5-1.4) mg/dL Estim Creat Clear Calc 92.1 Estimated GFR > 60 Random Glucose 76 (60-115) mg/dL Calcium 9.3 (8.4-10.2) mg/dL Magnesium 2.0 (1.6-2.6) mg/dL Total Bilirubin 0.6 (0.0-1.0) mg/dL Direct Bilirubin 0.2 (0.0-0.5) mg/dL AST 21 (5-31) U/L ALT 14 (0-31) U/L Alkaline Phosphatase 66 (39-117) U/L C-Reactive Protein < 0.04 (< or = 0.50) mg/dL Total Protein 7.2 (6.5-8.0) g/dL Albumin 4.9 (3.5-5.0) g/dL TSH 0.86 (0.32-4.0) uIU/mL Beta HCG, Quant < 2 mIU/mL Urine Color Yellow Urine Appearance Clear Urine pH 7.5 (5.0-9.0) Ur Specific [place] >= 1.030 H (1.005-1.025) Urine Protein Negative (Neg-Trace) mg/dL Urine Glucose (UA) Negative (Negative) mg/dL Urine Ketones Negative (Negative) mg/dL Urine Blood Negative (Negative) Urine Nitrite Negative (Negative) Ur Leukocyte Esterase Negative (Negative) Independent Interpretation I performed an independent interpretation of an: CT Scan Radiology Impression Discussion of test interpretation with radiology: I have reviewed the radiologist's reading. NIH Stroke Scale Level of Consciousness: Alert Level of Consciousness Questions: Answers both questions correctly Level of Consciousness Commands: Performs both tasks correctly Best Gaze: Normal Visual: No visual loss Facial Palsy: Normal Motor Arm (Right): No drift Motor Arm (Left): No drift Motor Leg (Right): No drift Motor Leg (Left): No drift Limb Ataxia: Absent Sensory: Mild to moderate sensory loss Best Language: No aphasia Dysarthia: Normal Extinction and Inattention: No abnormality Score: 1 Discharge Plan Discharge Clinical Impression: Headache Qualifiers: Headache type: unspecified Headache chronicity pattern: unspecified pattern Intractability: not intractable Qualified Code(s): R51.9 - Headache, unspecified Patient Disposition: Home, Self-Care Instructions: Acute Headache (ED) Additional Instructions: Follow up with your primary care doctor for your symptoms Prescriptions: No Action phenazopyridine [Pyridium] 100 mg tablet 200 mg PO TID 2 Days Qty: 6 0RF dicyclomine 10 mg capsule 10 mg PO TID 21 Days Qty: 63 0RF ondansetron HCl 4 mg tablet 4 mg PO Q6H PRN (Reason: nausea and vomiting) Qty: 14 0RF erythromycin 5 mg/gram (0.5 %) ointment 1 appl ophthalmic (eye) DAILY Qty: 3.5 0RF cyclobenzaprine 10 mg tablet 10 mg PO TID PRN (Reason: muscle spasm) Qty: 20 0RF ibuprofen 600 mg tablet 600 mg PO Q6H PRN (Reason: pain) Qty: 30 0RF ondansetron 4 mg tablet,disintegrating 4 mg PO Q8H PRN (Reason: nausea and vomiting) Qty: 20 0RF ibuprofen 400 mg tablet 400 mg PO Q8H PRN (Reason: fever or pain) Qty: 30 0RF Print Language: Mozambican
[2025-03-03 10:52] VITALS: BP 104/68; PULSE 73; RESP 16; O2SAT 100
[2025-03-03 10:52] LABS: MANUAL DIFF FLAG NO
[2025-03-03 10:55] LABS: Hematocrit 38.1 % (37.0-47.0); Hemoglobin 12.6 g/dl (12.0-16.0); Imm Gran Abs Auto 0.02 X10*3/uL (0.00-0.03); Imm Gran Pct Auto 0.3 % (0.0-0.4); Lymphocytes Absolute Auto 2.7 X10*3/uL (1.2-4.9); Mean Corpuscular HGB Conc 33.1 g/dl (31.0-35.0); Mean Corpuscular Hemoglobin 30.1 pg (27.0-33.0); Mean Corpuscular Volume 91.1 fL (80.0-98.0); NRBC Abs Auto 0.000 X10*3/uL (0.0-0.012); NRBC Pct Auto 0.0 /100WBC (0.0-0.2); Platelet Count 209 X10*3/uL (160-400); Red Blood Count 4.18 X10*6/uL (4.20-5.50); White Blood Count 7.5 X10*3/uL (4.8-10.8)
[2025-03-03] MEDS: Lactated Ringers 1,000 ML 999 ML IV ×2 (11:12→12:13)
[2025-03-03 11:23] LABS: Alanine Aminotransferase 14 U/L (0-31); Albumin Level 4.9 g/dL (3.5-5.0); Alkaline Phosphatase 66 U/L (39-117); Anion Gap 10 (12-20); Aspartate Amino Transferase 21 U/L (5-31); Blood Urea Nitrogen 11 mg/dL (9-16); Calcium 9.3 mg/dL (8.4-10.2); Carbon Dioxide 27 mmol/L (22-29); Chloride 109 mmol/L (96-108); Creatinine Clr Calc Pharmacy 92.1; Estimated Glomerular Filt Rate > 60; Magnesium 2.0 mg/dL (1.6-2.6); Potassium 4.2 mmol/L (3.3-5.1); Sodium 142 mmol/L (135-145); Total Protein 7.2 g/dL (6.5-8.0)
[2025-03-03 12:00] VITALS: BP 90/50; PULSE 72; RESP 18; O2SAT 99
[2025-03-03] MEDS: Magnesium Sulfate/H2O 2 GM/50 ML PIGGYBACK IV (12:10)
[2025-03-03] MEDS: iohexoL 350 MG/ML 100 ML INFUS..BTL IV (12:31)
[2025-03-03 14:00] VITALS: BP 104/56; PULSE 70; RESP 20; O2SAT 96
--- OUTSIDE RECORDS SUMMARY | 2025-03-03 14:33 | XMS_ITS | Clinical Summary ---
Author Organization [facility] ity Address [address] [place] [address] Care Team Providers Care Retort Furnace Operator Name Role Phone Unavailable Primary Care Provider [...] on file Sexual Orientation Not on file Plan of Treatment Health Maintenance Due Date Last Done Comments Gonorrhea/Chlamydia Screening 2000 Cervical Cancer Screening: Pap Smear 2021 DTaP,Tdap,and Td Vaccines (7 - Td or Tdap) 07/31/2022 07/31/2012, 11/28/2006, 05/09/2002, Additional history exists HIV Screening 04/17/2023 Hepatitis C Screening 04/17/2023 Social Influencers of Health Screening 04/17/2023 Depression Screening 03/19/2024 COVID-19 Vaccine (2024- season) 2024 Influenza Vaccine (#1) 2024 5, [...]
[2025-03-03 14:55] LABS: Appearance Urine Clear; Glucose Urine UA Negative (Negative); PH 7.5 (5.0-9.0); Specific Gravity - Urine >= 1.030 (1.005-1.025)
[2025-03-03 15:49] VITALS: BP 104/56; PULSE 70; RESP 20; TEMP -17.7; TEMP 0; O2SAT 96
== END 2025-03-03 15:50 | disposition home or self-care (01) ==
PROVIDERS: Emergency Medicine; Emergency Provider Student in an Organized Health Care Education/Training Program; PCP Internal Medicine
DX: R51.9 Headache, unspecified (principal)
CPT/HCPCS: 36415; 70496; 70498; 80048; 80076; 81003; 83735; 84443; 84702; 85025; 85652; 86140; 96361; 96365; 96366; 96375; 99283; 99285; J1200; J2765; J3475; J7120; Q9967

== ENCOUNTER → 2025-03-03 10:42 | Outpatient (BNV) | payer OTHER, SELFPAY | PROVIDERS: Emergency Provider Student in an Organized Health Care Education/Training Program; PCP Internal Medicine; Visit Provider Radiology Diagnostic Radiology | DX: R51.9 Headache, unspecified (principal); R20.2 Paresthesia of skin | CPT/HCPCS: 70496; 70498 ==